=== PATIENT | male | born 1960 | race Caucasian/White ===

== ENCOUNTER 2017-02-11 17:30 | Inpatient (IN) | payer OTHER ==
[~2017-02-11] VITALS: Ht 180.3 cm; Wt 75.0 kg
--- NOTE | 2017-02-11 18:55 | ED ORDER SUMMARY ---
..... Patient: ILIANA SOLOMON OrderSheet [facility] VisitID: [id number] [place] [address] 56y, M Registration Date/Time: 02/11/2017 ORDER SHEET Weight: 72.5 kg (stated) Allergies: No Known Drug Allergy GENERAL ORDERS: Blood Culture (No) (N/A) Urgent (17:57 02/11/2017 Berta Pete) (Ack 18:17 LNations ER Tech1) (18:23 MWinterer R.N.) CBC w Diff Urgent (18:00 02/11/2017 Berta Pete) (Ack 18:17 LNations ER Tech1) (18:22 MWinterer R.N.) CMP Urgent (18:00 02/11/2017 Berta Pete) (Ack 18:17 LNations ER Tech1) (18:22 MWinterer R.N.) UA-Culture if indicated Urgent (18:00 02/11/2017 Berta Pete) (Ack 18:17 LNations ER Tech1) Urine Drug Screen Urgent (18:00 02/11/2017 Berta Pete) (Ack 18:17 LNations ER Tech1) PCT (Procalcitonin) Urgent (18:01 02/11/2017 Berta Pete) (Ack 18:18 LNations ER Tech1) (18:22 MWinterer R.N.) Lactate, Serum Urgent (18:01 02/11/2017 Berta Pete) (Ack 18:18 LNations ER Tech1) (18:22 MWinterer R.N.) Culture, Wound Deep (Foot) (From exudate) Urgent (19:33 02/11/2017 Berta Pete) (Ack 19:40 SRedmond) (20:52 MWinterer R.N.) MEDICATION ORDERS: Tdap IM 0.5 mL (NOW, per protocol) (20:57 02/11/2017 Berta Pete) (Ack 21:21 MWinterer R.N.) (21:40 MWinterer R.N.) IV FLUIDS: IV Saline Lock (18:00 02/11/2017 Berta Pete) (Ack 18:03 MWinterer R.N.) (18:27 MWinterer R.N.) Morphine IV 4 mg (HIGH ALERT MEDICATION, NOW) (18:01 02/11/2017 Berta Pete) (Ack 18:03 MWinterer R.N.) (18:28 MWinterer R.N.) Morphine IV 4 mg (HIGH ALERT MEDICATION, NOW) (20:44 02/11/2017 Berta Pete) (20:47 MWinterer R.N.) Vancomycin IV 1 gm/200mL (NOW) (20:44 02/11/2017 Berta Pete) (Ack 20:47 MWinterer R.N.) (20:52 MWinterer R.N.) ORDER SHEET NOTES: [Electronically signed by Lulú Lopes R.N. (22:01 02/11/2017)] [Electronically signed by Tod Dubois Dr. (08:48 02/12/2017)] [Electronically locked/signed by Lulú Lopes R.N. (22:02/11/2017)]
--- NOTE | 2017-02-11 18:55 | ED CLINICAL REPORT ---
Clinical Report - Physicians/Mid Levels [facility] [address] [place] [address] 02/11/2017 17:32 Patient: ILIANA SOLOMON Time Seen: 17:41; initial patient contact. Arrived- By private vehicle. Historian- patient. HISTORY OF PRESENT ILLNESS Chief Complaint: BOIL. This started about 2 days ago and is still present and worsening. It was gradual in onset and has been constant. It is described as painful. It has been located on the right 1st toe. No cause has been identified. No recent insect bite. Similar symptoms previously: None. Recent medical care: Not recently seen/assessed. REVIEW OF SYSTEMS No fever, chills, enlarged lymph nodes, nausea or vomiting. All systems otherwise negative, except as recorded above. 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 Tetanus immunization status is unknown. SOCIAL HISTORY Current every day smoker. No alcohol use or drug use. ADDITIONAL NOTES The nursing notes have been reviewed with agreement regarding the chief complaint, PMH and patient medications and allergies. PHYSICAL EXAM Vital Signs: 02/11/2017 17:37 BP: 162/86. HR: 88. RR: 18. O2 saturation: 100%. Temp: 97.9 F. Pain level now: 10/10. Have been reviewed. Hypertensive. Heart rate normal. Respiratory rate normal. Temperature normal. Oxygen saturation normal. Appearance: Alert. Oriented X3. No acute distress. ENT: Pharynx normal. CVS: Normal heart rate and rhythm. Heart sounds normal. Respiratory: No respiratory distress. Breath sounds normal. Abdomen: Nontender. No organomegaly. Skin: Skin warm and dry. Single medium abscess with fluctuance, pointing, drainage and cellulitis to right foot. Extremities: Mild 1+ edema of the right lower extremity involving the foot and ankle. Right great toe: moderate tenderness and swelling; limited movement secondary to (diminished flexion and extension). Neurovascular intact distally. Neuro: Oriented X 3. No motor deficit. LABS, X-RAYS, AND EKG Laboratory Tests: CBC w Diff: (ROSEANNE: 02/11/2017 18:15) ( MsgRcvd 02/11/2017 19:10) Final results Test Result Flag Units (Reference) WHITE BLOOD COUNT 17.1 H K/uL (4.5-11.5) RED BLOOD COUNT 4.23 L M/uL (4.50-5.90) HEMOGLOBIN 12.2 L gm/dL (13.5-17.5) HEMATOCRIT 37.2 L % (41.0-53.0) MEAN CELL VOLUME 88 fL (80-100) MEAN CORPUSCULAR HGB 29 pg (26-34) MEAN CORPUSCULAR HGB CONC 33 g/dL (31-37) RED CELL DISTRIBUTION WIDTH 13.4 % (11.6-14.8) PLATELET COUNT 371 K/uL (150-400) NEUTROPHIL % 82.4 H % (50-75) LYMPH % 7.6 L % (25-40) MONO % 6.3 % (3-14) EOSINOPHIL % 3.5 % (0-4) BASOPHIL % 0.2 % (0-2) Lactate, Serum: (ROSEANNE: 02/11/2017 18:15) ( [facility] 02/11/2017 19:21) Final results Test Result Flag Units (Reference) LACTIC ACID 1.4 mmol/L (0.4-2.0) [id number]: (ROSEANNE: 02/11/2017 18:15) ( [facility] 02/11/2017 19:47) Final results Test Result Flag Units (Reference) PROCALCITONIN <0.5 ng/mL (0-0.5) PCT Concentration: Interpretation : Risk/option for action PCT <=0.5 ng/mL : Systemic : Low risk forinfection(sepsis): progression to severeis not likely. : systemic infection.Local bacterial : CAUTION-PCT levelsinfection is : below 0.5 ng/mL do notpossible. : exclude an infection,because localizedinfections (withoutsystemic signs) may beassociated with suchlow levels. If PCT ismeasured very earlyafter a bacterialchallenge (usually <6hours), these valuesmay still be low. Inthis case PCT shouldbe re-assessed 6-24hours later. PCT >0.5 and : Systemic infection: Moderate risk for<= 2 ng/mL : (sepsis) is : progression to severepossible, but : systemic infection.other conditions : The patient should beare known to : closely monitoredelevate PCT. : both clinically andby re-assessing PCTwithin 6-24 hours. PCT > 2 ng/mL : Systemic infection: High risk for(sepsis) is likely: progression to severeunless other : systemic infection.causes are known. : PCT >= 10 ng/mL : Important systemic: High likelihood ofinflammatory : severe sepsis orresponse, almost : septic shock.exclusively due to:severe bacterial :sepsis or septic :shock. : CMP: (ROSEANNE: 02/11/2017 18:15) ( MsgRcvd 02/11/2017 19:26) Final results Test Result Flag Units (Reference) GLUCOSE 106 mg/dL (70-110) BUN 15 mg/dL (7-18) CREATININE 0.9 mg/dL (0.6-1.3) Estimated GFR >60 mL/min Estimated GFR- >60 mL/min Note: Persistent reduction over 3 months in eGFR<60 mL/min/1.73 m2 defines CKD. Patients with eGFR values>=60 mL/min/1.73 m2 may also have CKD if evidence ofpersistent proteinuria. Additional information may be foundat www.kidney.org. SODIUM 138 mmol/L (136-145) POTASSIUM 3.8 mmol/L (3.5-5.1) CHLORIDE 100 mmol/L (98-107) CARBON DIOXIDE 30 mmol/L (21-32) CALCIUM 8.8 mg/dL (8.5-10.1) TOTAL PROTEIN 7.6 g/dL (6.4-8.2) ALBUMIN 3.1 L g/dL (3.3-5.0) BILIRUBIN, TOTAL 0.3 mg/dL (0.0-1.0) ALKALINE PHOSPHATASE 99 U/L (46-116) AST (SGOT) 26 U/L (15-37) ALT (SGPT) 32 U/L (12-78) . PROGRESS AND PROCEDURES Incision & Drainage of Abscess: Per protocol, time-out completed immediately before the procedure. The abscess is located in the right great toe(s). The risks of the procedure, benefits and alternatives were explained. Consent was obtained. IV established. Parenteral Morphine administered. Skin cleansed with Shur-Clens. A moderate amount of pus was drained. Sample obtained for cultures. Estimated blood loss: 2 mL. ( 18 ga needle used to open wound.). Discussed case with on-call health care provider, (call returned 20:26 Dr. Castellanos. Will come see pt in ED and admit.). Reviewed test results and need for additional work-up. Health care provider will see patient in ED. Disposition: Observation in Acute Care. CLINICAL IMPRESSION Single deep abscess to the right lower extremity with incision and drainage. Moderate leukocytosis with bandemia. INSTRUCTIONS Follow-up: Screening today revealed the patient's blood pressure to be in the pre-hypertensive range. The patient was admitted and blood pressure will be managed during the admission. (Electronically signed by Tod Dubois Dr. 02/12/2017 8:48)
--- NOTE | 2017-02-11 18:55 | ED NURSING NOTES ---
Clinical Report - Nurses [facility] [place] [address] 02/11/2017 17:32 Patient: ILIANA SOLOMON TRIAGE Acuity: LEVEL 4. Chief Complaint: RIGHT LOWER EXTREMITY PAIN, SWELLING and REDNESS. Alert. No acute distress. SEPSIS SCREEN: Sepsis Screen. Negative (no infection suspected/documented). --17:41 Lulú Lopes R.N. 17:37 02/11/17. BP: 162/86. HR: 88. RR: 18. O2 saturation: 100% on room air. Temp: 97.9 F. Pain level now: 08/11. --17:41 Lulú Lopes R.N. Weight: 72.5 kg stated. Height/Length: 71 inches Per Patient. BMI: 22.3. --17:39 Lulú Lopes R.N. Medications None. --17:38 Lulú Lopes R.N. Medication/allergy information source: the patient. --17:41 Lulú Lopes R.N. Allergies No Known Drug Allergy. --17:38 Lulú Lopes R.N. History Arrived by private vehicle. Historian: patient. Accompanied by mother. Primary physician (none). An injury may have occurred. This occurred (4 days ago). He has had mild trouble walking. The patient has been limping when trying to walk. SOCIAL HX: Current every day heavy tobacco smoker (cigarette)- 1-2 packs per day. No alcohol use or drug use. FALL RISK ASSESSMENT: Fall risk assessment completed. No fall risk identified. NUTRITIONAL RISK ASSESSMENT: The nutritional risk assessment revealed no deficiencies. FUNCTIONAL ASSESSMENT: Functional assessment: no impairments noted. LEARNING NEEDS ASSESSMENT: The learning needs assessment revealed no barriers. SKIN INTEGRITY ASSESSMENT: Skin integrity risk assessment completed. No skin integrity risk identified. --17:41 Lulú Lopes R.N. PROBLEMS: MRSA Infection. --17:39 Lulú Lopes R.N. Assessment GENERAL / NEURO / PSYCH: Alert. Oriented X 4. Appears in no acute distress. [place] Coma Scale: 15- eyes open spontaneously (4); best verbal response- oriented x 4 (5); best motor response- obeys commands (6). Patient appears calm and cooperative. RESPIRATORY: Respirations not labored. CVS: Capillary refill less than 2 seconds. GI / : Abdomen nontender. SKIN: Mucous membranes are pink. Skin is warm and dry. --17:41 Lulú Lopes R.N. Interventions ID band on patient. To treatment room. --17:41 Lulú Lopes R.N. PHYSICAL ASSESSMENT 17:41 02/11/17. Ambulatory to room. GENERAL / NEURO / PSYCH: Oriented X 4. Alert. Appears in no acute distress. EXTREMITIES: Extremity pulses are within normal limits. Neuro-vascular status intact to the extremity. No lower extremity edema. SKIN: Skin intact. Skin is warm and dry. --17:41 Lulú Lopes R.N. NURSING PROGRESS NOTES 17:02/11/17. Patient gowned. Two patient identifiers checked. Call light placed in reach. Side rails up x 1. Bed placed in lowest position. Brakes of bed on. Patient ready for evaluation- chart flagged and ED physician and FLOORING HELPER notified. --17:41 Lulú Lopes R.N. 18:17 02/11/2017 Site #1 started via IV in the right antecubital space with an 18g angiocath, with aseptic technique and good blood return; one attempt. Blood drawn: rainbow set. Labeled in the presence of the patient and sent to the lab. Saline lock flushed with 10 mL saline. --18:27 Lulú Lopes R.N. 18:28 02/11/2017 Morphine IVP 4 mg given over 1 minute(s) via site #1. Allergies verified, confirmed 5 rights and sedative warning given to the patient. IV patency established. IV site checked: no pain, redness, or swelling. IV flushed thoroughly pre- and post-medication administration. IVP given by RN. --18:28 Lulú Lopes R.N. 18:37 02/11/17. ( Pt states he cannot void at this time..). --18:37 Lulú Lopes R.N. 19:31 02/11/17. BP: 148/91. HR: 89. RR: 18. O2 saturation: 100% on room air. Temp: 97.9 F (oral). --19:33 Lulú Lopes R.N. 19:33 02/11/17. The patient is sleeping. At the patient's bedside (mother). --19:33 Lulú Lopes R.N. 20:47 02/11/2017 Morphine IVP 4 mg given over 1 minute(s) via site #1. Allergies verified, confirmed 5 rights and sedative warning given to the patient. IV patency established. IV site checked: no pain, redness, or swelling. IV flushed thoroughly pre- and post-medication administration. IVP given by RN. --20:47 Lulú Lopes R.N. 20:52 02/11/2017 Started 1 gm of Vancomycin IVPB in bag #1 200 mL; at 200 mL/hr over 1 hour(s) via site #1 via IV pump. Allergies verified and confirmed 5 rights. IV patency established. IV site checked: no pain, redness, or swelling. IV flushed thoroughly pre- and post-medication administration. --20:52 Lulú Lopes R.N. 20:52 02/11/17. BP: 152/96. HR: 83. RR: 12. O2 saturation: 99% on room air. Pain level now: 6/10. --20:53 Lulú Lopes R.N. 21:40 02/11/2017 TDAP IM 0.5 mL given. (Lot#: [id number], expiration date: 08/09/2018, Interactive Media Marketing Strategist: sanofi pasteur). Given in the left deltoid. Allergies verified and confirmed 5 rights. Vaccine information statement provided to the patient. --21:40 Lulú Lopes R.N. 21:51 02/11/2017 Vancomycin IVPB Discontinued: bag #1 infused. Total amount infused: 200 mL. IV patency established. IV site checked: no pain, redness, or swelling. IV flushed thoroughly. --21:51 Lulú Lopes R.N. DISPOSITION / DISCHARGE Condition at departure: improved and stable. Admitted (201). Transported via stretcher by [facility]. Report was given to a nurse. Report included patient's care, treatment, medications, reviewed medication reconcilliation, and condition (including any recent changes or anticipated changes). All questions were answered. Report was acknowledged and care was transferred. (ANGELES Melendez). Patient's personal items include: shirt, pants, socks, shoes, hat, glasses and cell phone; items were placed in belongings bag, given to the patient and transported with the patient. He did not have dentures or a hearing aid or wallet. --21:51 Lulú Lopes R.N. 21:48 02/11/17. BP: 138/85. HR: 77. RR: 12. O2 saturation: 98% on room air. Temp: 98.9 F (oral). Pain level now: 03/11. --21:51 Lulú Lopes R.N. 22:00 02/11/2017 Site #[address] upon admission; patent, no pain and no signs of infection or infiltration. --22:00 Lulú Lopes R.N. Departure time: 22:00 Feb 11 2017. --22:00 Lulú Lopes R.N. Locked/Released at 02/11/2017 22:01 by Lulú Lopes R.N.
--- NOTE | 2017-02-11 18:55 | ED ORDER SUMMARY ---
..... Patient: ILIANA SOLOMON OrderSheet [facility] VisitID: [id number] [place] [address] 56y, M Registration Date/Time: 02/11/2017 ORDER SHEET Weight: 72.5 kg (stated) Allergies: No Known Drug Allergy GENERAL ORDERS: Blood Culture (No) (N/A) Urgent (17:57 02/11/2017 Berta Pete) (Ack 18:17 LNations ER Tech1) (18:23 MWinterer R.N.) CBC w Diff Urgent (18:00 02/11/2017 Berta Pete) (Ack 18:17 LNations ER Tech1) (18:22 MWinterer R.N.) CMP Urgent (18:00 02/11/2017 Berta Pete) (Ack 18:17 LNations ER Tech1) (18:22 MWinterer R.N.) UA-Culture if indicated Urgent (18:00 02/11/2017 Berta Pete) (Ack 18:17 LNations ER Tech1) Urine Drug Screen Urgent (18:00 02/11/2017 Berta Pete) (Ack 18:17 LNations ER Tech1) PCT (Procalcitonin) Urgent (18:01 02/11/2017 Berta Pete) (Ack 18:18 LNations ER Tech1) (18:22 MWinterer R.N.) Lactate, Serum Urgent (18:01 02/11/2017 Berta Pete) (Ack 18:18 LNations ER Tech1) (18:22 MWinterer R.N.) Culture, Wound Deep (Foot) (From exudate) Urgent (19:33 02/11/2017 Berta Pete) (Ack 19:40 SRedmond) (20:52 MWinterer R.N.) MEDICATION ORDERS: Tdap IM 0.5 mL (NOW, per protocol) (20:57 02/11/2017 Berta Pete) (Ack 21:21 MWinterer R.N.) (21:40 MWinterer R.N.) IV FLUIDS: IV Saline Lock (18:00 02/11/2017 Berta Pete) (Ack 18:03 MWinterer R.N.) (18:27 MWinterer R.N.) Morphine IV 4 mg (HIGH ALERT MEDICATION, NOW) (18:01 02/11/2017 Berta Pete) (Ack 18:03 MWinterer R.N.) (18:28 MWinterer R.N.) Morphine IV 4 mg (HIGH ALERT MEDICATION, NOW) (20:44 02/11/2017 Berta Pete) (20:47 MWinterer R.N.) Vancomycin IV 1 gm/200mL (NOW) (20:44 02/11/2017 Berta Pete) (Ack 20:47 MWinterer R.N.) (20:52 MWinterer R.N.) ORDER SHEET NOTES: [Electronically signed by Lulú Lopes R.N. (22:01 02/11/2017)] [Electronically signed by Tod Dubois Dr. (08:48 02/12/2017)] [Electronically locked/signed by Lulú Lopes R.N. (22:02/11/2017)]
--- NOTE | 2017-02-11 18:55 | ED NURSING NOTES ---
Clinical Report - Nurses [facility] [place] [address] 02/11/2017 17:32 Patient: ILIANA SOLOMON TRIAGE Acuity: LEVEL 4. Chief Complaint: RIGHT LOWER EXTREMITY PAIN, SWELLING and REDNESS. Alert. No acute distress. SEPSIS SCREEN: Sepsis Screen. Negative (no infection suspected/documented). --17:41 Lulú Lopes R.N. 17:37 02/11/17. BP: 162/86. HR: 88. RR: 18. O2 saturation: 100% on room air. Temp: 97.9 F. Pain level now: 08/11. --17:41 Lulú Lopes R.N. Weight: 72.5 kg stated. Height/Length: 71 inches Per Patient. BMI: 22.3. --17:39 Lulú Lopes R.N. Medications None. --17:38 Lulú Lopes R.N. Medication/allergy information source: the patient. --17:41 Lulú Lopes R.N. Allergies No Known Drug Allergy. --17:38 Lulú Lopes R.N. History Arrived by private vehicle. Historian: patient. Accompanied by mother. Primary physician (none). An injury may have occurred. This occurred (4 days ago). He has had mild trouble walking. The patient has been limping when trying to walk. SOCIAL HX: Current every day heavy tobacco smoker (cigarette)- 1-2 packs per day. No alcohol use or drug use. FALL RISK ASSESSMENT: Fall risk assessment completed. No fall risk identified. NUTRITIONAL RISK ASSESSMENT: The nutritional risk assessment revealed no deficiencies. FUNCTIONAL ASSESSMENT: Functional assessment: no impairments noted. LEARNING NEEDS ASSESSMENT: The learning needs assessment revealed no barriers. SKIN INTEGRITY ASSESSMENT: Skin integrity risk assessment completed. No skin integrity risk identified. --17:41 Lulú Lopes R.N. PROBLEMS: MRSA Infection. --17:39 Lulú Lopes R.N. Assessment GENERAL / NEURO / PSYCH: Alert. Oriented X 4. Appears in no acute distress. [place] Coma Scale: 15- eyes open spontaneously (4); best verbal response- oriented x 4 (5); best motor response- obeys commands (6). Patient appears calm and cooperative. RESPIRATORY: Respirations not labored. CVS: Capillary refill less than 2 seconds. GI / : Abdomen nontender. SKIN: Mucous membranes are pink. Skin is warm and dry. --17:41 Lulú Lopes R.N. Interventions ID band on patient. To treatment room. --17:41 Lulú Lopes R.N. PHYSICAL ASSESSMENT 17:41 02/11/17. Ambulatory to room. GENERAL / NEURO / PSYCH: Oriented X 4. Alert. Appears in no acute distress. EXTREMITIES: Extremity pulses are within normal limits. Neuro-vascular status intact to the extremity. No lower extremity edema. SKIN: Skin intact. Skin is warm and dry. --17:41 Lulú Lopes R.N. NURSING PROGRESS NOTES 17:02/11/17. Patient gowned. Two patient identifiers checked. Call light placed in reach. Side rails up x 1. Bed placed in lowest position. Brakes of bed on. Patient ready for evaluation- chart flagged and ED physician and INTERVENTIONAL PHYSICIAN notified. --17:41 Lulú Lopes R.N. 18:17 02/11/2017 Site #1 started via IV in the right antecubital space with an 18g angiocath, with aseptic technique and good blood return; one attempt. Blood drawn: rainbow set. Labeled in the presence of the patient and sent to the lab. Saline lock flushed with 10 mL saline. --18:27 Lulú Lopes R.N. 18:28 02/11/2017 Morphine IVP 4 mg given over 1 minute(s) via site #1. Allergies verified, confirmed 5 rights and sedative warning given to the patient. IV patency established. IV site checked: no pain, redness, or swelling. IV flushed thoroughly pre- and post-medication administration. IVP given by RN. --18:28 Lulú Lopes R.N. 18:37 02/11/17. ( Pt states he cannot void at this time..). --18:37 Lulú Lopes R.N. 19:31 02/11/17. BP: 148/91. HR: 89. RR: 18. O2 saturation: 100% on room air. Temp: 97.9 F (oral). --19:33 Lulú Lopes R.N. 19:33 02/11/17. The patient is sleeping. At the patient's bedside (mother). --19:33 Lulú Lopes R.N. 20:47 02/11/2017 Morphine IVP 4 mg given over 1 minute(s) via site #1. Allergies verified, confirmed 5 rights and sedative warning given to the patient. IV patency established. IV site checked: no pain, redness, or swelling. IV flushed thoroughly pre- and post-medication administration. IVP given by RN. --20:47 Lulú Lopes R.N. 20:52 02/11/2017 Started 1 gm of Vancomycin IVPB in bag #1 200 mL; at 200 mL/hr over 1 hour(s) via site #1 via IV pump. Allergies verified and confirmed 5 rights. IV patency established. IV site checked: no pain, redness, or swelling. IV flushed thoroughly pre- and post-medication administration. --20:52 Lulú Lopes R.N. 20:52 02/11/17. BP: 152/96. HR: 83. RR: 12. O2 saturation: 99% on room air. Pain level now: 6/10. --20:53 Lulú Lopes R.N. 21:40 02/11/2017 TDAP IM 0.5 mL given. (Lot#: [id number], expiration date: 08/09/2018, Sales Promotion Director: sanofi pasteur). Given in the left deltoid. Allergies verified and confirmed 5 rights. Vaccine information statement provided to the patient. --21:40 Lulú Lopes R.N. 21:51 02/11/2017 Vancomycin IVPB Discontinued: bag #1 infused. Total amount infused: 200 mL. IV patency established. IV site checked: no pain, redness, or swelling. IV flushed thoroughly. --21:51 Lulú Lopes R.N. DISPOSITION / DISCHARGE Condition at departure: improved and stable. Admitted (201). Transported via stretcher by [employer]. Report was given to a nurse. Report included patient's care, treatment, medications, reviewed medication reconcilliation, and condition (including any recent changes or anticipated changes). All questions were answered. Report was acknowledged and care was transferred. (ANGELES Melendez). Patient's personal items include: shirt, pants, socks, shoes, hat, glasses and cell phone; items were placed in belongings bag, given to the patient and transported with the patient. He did not have dentures or a hearing aid or wallet. --21:51 Lulú Lopes R.N. 21:48 02/11/17. BP: 138/85. HR: 77. RR: 12. O2 saturation: 98% on room air. Temp: 98.9 F (oral). Pain level now: 03/11. --21:51 Lulú Lopes R.N. 22:00 02/11/2017 Site #[address] upon admission; patent, no pain and no signs of infection or infiltration. --22:00 Lulú Lopes R.N. Departure time: 22:00 Feb 11 2017. --22:00 Lulú Lopes R.N. Locked/Released at 02/11/2017 22:01 by Lulú Lopes R.N.
--- NOTE | 2017-02-11 21:42 | Progress Note ---
Subjective General Abscess right great toe. Needs I/D and is having a lot of pain. Admitted for IV antibiotics and surgery in the am.
--- NOTE | 2017-02-11 21:42 | Progress Note ---
Subjective General Abscess right great toe. Needs I/D and is having a lot of pain. Admitted for IV antibiotics and surgery in the am.
--- NOTE | 2017-02-11 23:51 | DIAGNOSTIC IMAGING REPORT ---
PROCEDURE: XR TOE - RIGHT INDICATION: infected right great toe TECHNIQUE: Three views. COMPARISON: None. FINDINGS: There is soft tissue swelling around the right first proximal phalanx with a faint radiodensity, possible foreign body versus tophus. No evidence of underlying osteomyelitis. Normal joint spaces. Old fifth metatarsal fracture. IMPRESSION: 1. Soft tissue swelling around the right first proximal phalanx with foreign body versus tophus.
[2017-02-12] VITALS (12 sets, daily range): BP systolic 103–135; BP diastolic 57–95
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
--- NOTE | 2017-02-12 08:06 | Postoperative Progress Note ---
Postop Progress Note Preoperate Diagnosis: Abscess right great toe Postoperative Diagnosis: Same Surgeon: Jaime Castellanos MD Anesthesia: General ETT Findings: Abscess right great toe Procedure: I/D right great toe Complications? No Condition: Stable EBL: 5cc Drain(s): /" gauze packing Blood Administered: 0 Specimen(s) removed? No Grafts or Implants? No . (See nursing notes for details of grafts/implants)
--- NOTE | 2017-02-12 08:41 | OPERATIVE REPORT ---
DATE OF SURGERY: 02/12/2017 SURGEON: LUIS AMEZCUA MD PREOPERATIVE DIAGNOSIS: 1. Abscess of the right great toe. POSTOPERATIVE DIAGNOSIS: 1. Abscess of the right great toe. PROCEDURE PERFORMED: The operation proposed was an incision and drainage of the right great toe and the operation performed the same. ESTIMATED BLOOD LOSS: About 5 mL. COMPLICATIONS: None. PATHOLOGY SPECIMEN: None. SURGICAL TECHNIQUE: The patient was taken to the operating room. He was given a general anesthetic and then the leg was prepped and draped in the usual sterile fashion. I made a longitudinal incision directly dorsally over the great toe and he had a large quantity of very thick pus that was expressed and then the wound was probed. It did extend right down to his MTP joint and it was irrigated out very thoroughly with copious quantities of sterile saline solution and then packed with some 1/4 inch gauze packing. It was covered with an ABD pad and wrapped with a Kerlix and Ash bandage loosely applied. Once the bandage was applied, he was awakened and he was taken to the recovery room in stable condition.
--- NOTE | 2017-02-12 08:49 | ED MAR SUMMARY ---
..... Medication Administration Record [facility] [address] [place] [address] Patient: ILIANA SOLOMON Visit ID: [id number] 56y, M Weight: 72.5 kg Height/Length: 71 in BMI: 22.3 ALLERGIES: No Known Drug Allergy Given 18:28 02/11/2017 Lulú Lopes R.N. Medication Administered: MORPHINE [IVP], Dose: 4 mg IVP over 1 minute(s), Site: #1 right AC. Medication Ordered: Morphine IV 4 mg (HIGH ALERT MEDICATION, NOW). Given 20:47 02/11/2017 Lulú Lopes R.N. Medication Administered: MORPHINE [IVP], Dose: 4 mg IVP over 1 minute(s), Site: #1 right AC. Medication Ordered: Morphine IV 4 mg (HIGH ALERT MEDICATION, NOW). Start 20:52 02/11/2017 Lulú Lopes R.N., Stop 21:51 02/11/2017 Lulú Lopes R.N. Medication Administered: VANCOMYCIN [IVPB], Dose: 1 gm IVPB over 1 hour(s), Rate: 200 mL/hr, Dispensed: 200 mL bag, Site: #1 right AC. Medication Ordered: Vancomycin IV 1 gm/200mL (NOW). Given 21:40 02/11/2017 Lulú Lopes R.N. Medication Administered: TDAP [IM], Dose: 0.5 mL IM. Medication Ordered: Tdap IM 0.5 mL (NOW, per protocol).
--- NOTE | 2017-02-12 08:49 | ED MAR SUMMARY ---
..... Medication Administration Record [facility] [address] [place] [place] [address] Patient: ILIANA SOLOMON Visit ID: [id number] 56y, M Weight: 72.5 kg Height/Length: 71 in BMI: 22.3 ALLERGIES: No Known Drug Allergy Given 18:28 02/11/2017 Lulú Lopes R.N. Medication Administered: MORPHINE [IVP], Dose: 4 mg IVP over 1 minute(s), Site: #1 right AC. Medication Ordered: Morphine IV 4 mg (HIGH ALERT MEDICATION, NOW). Given 20:47 02/11/2017 Lulú Lopes R.N. Medication Administered: MORPHINE [IVP], Dose: 4 mg IVP over 1 minute(s), Site: #1 right AC. Medication Ordered: Morphine IV 4 mg (HIGH ALERT MEDICATION, NOW). Start 20:52 02/11/2017 Lulú Lopes R.N., Stop 21:51 02/11/2017 Lulú Lopes R.N. Medication Administered: VANCOMYCIN [IVPB], Dose: 1 gm IVPB over 1 hour(s), Rate: 200 mL/hr, Dispensed: 200 mL bag, Site: #1 right AC. Medication Ordered: Vancomycin IV 1 gm/200mL (NOW). Given 21:40 02/11/2017 Lulú Lopes R.N. Medication Administered: TDAP [IM], Dose: 0.5 mL IM. Medication Ordered: Tdap IM 0.5 mL (NOW, per protocol).
--- NOTE | 2017-02-12 08:49 | ED DISCHARGE INSTRUCTIONS ---
Patient: ILIANA SOLOMON General Instructions [facility] VisitID: [id number] [address] [place] [address] 56y, M Registration Date/Time: 02/11/2017 Single deep abscess to the right lower extremity with incision and drainage. Moderate leukocytosis with bandemia. INSTRUCTIONS Follow-up: Screening today revealed the patient's blood pressure to be in the pre-hypertensive range. The patient was admitted and blood pressure will be managed during the admission. (Electronically signed by Tod Dubois Dr. 02/12/2017 8:48)
--- NOTE | 2017-02-12 08:49 | ED MED RECONCILIATION SUMMARY ---
Patient: ILIANA SOLOMON Medication Reconciliation Report [facility] VisitID: [id number] [address] [place] [address] 56y, M Registration Date/Time: 02/11/2017 Weight: 72.5 kg Height/Length: 71 in. BMI: 22.3 ALLERGIES: No Known Drug Allergy The patient's Home Medications are listed below: NONE. The source(s) of the original Home Medication information: patient The following Medications were given to the patient in the Emergency Department: Morphine [IVP] IVP 4 mg, administered: 02/11/2017 6:28:00 PM Morphine [IVP] IVP 4 mg, administered: 02/11/2017 8:47:00 PM Vancomycin [IVPB] IVPB bolus 0, then 1 gm 200 mL/hr, administered: 02/11/2017 8:52:00 PM TDAP [IM] IM 0.5 mL, administered: 02/11/2017 9:40:00 PM The following Medications were prescribed to the patient: None.
--- NOTE | 2017-02-12 08:49 | ED MED RECONCILIATION SUMMARY ---
Patient: ILIANA SOLOMON Medication Reconciliation Report [facility] VisitID: [id number] [address] [place] [address] 56y, M Registration Date/Time: 02/11/2017 Weight: 72.5 kg Height/Length: 71 in. BMI: 22.3 ALLERGIES: No Known Drug Allergy The patient's Home Medications are listed below: NONE. The source(s) of the original Home Medication information: patient The following Medications were given to the patient in the Emergency Department: Morphine [IVP] IVP 4 mg, administered: 02/11/2017 6:28:00 PM Morphine [IVP] IVP 4 mg, administered: 02/11/2017 8:47:00 PM Vancomycin [IVPB] IVPB bolus 0, then 1 gm 200 mL/hr, administered: 02/11/2017 8:52:00 PM TDAP [IM] IM 0.5 mL, administered: 02/11/2017 9:40:00 PM The following Medications were prescribed to the patient: None.
--- NOTE | 2017-02-12 08:49 | ED DISCHARGE INSTRUCTIONS ---
Patient: ILIANA SOLOMON General Instructions [facility] VisitID: [id number] [address] [place] [address] 56y, M Registration Date/Time: 02/11/2017 Single deep abscess to the right lower extremity with incision and drainage. Moderate leukocytosis with bandemia. INSTRUCTIONS Follow-up: Screening today revealed the patient's blood pressure to be in the pre-hypertensive range. The patient was admitted and blood pressure will be managed during the admission. (Electronically signed by Tod Dubois Dr. 02/12/2017 8:48)
[2017-02-13 02:06] VITALS: BP 100/64
[2017-02-13 06:52] VITALS: BP 123/67
--- NOTE | 2017-02-13 08:51 | Progress Note ---
Subjective General VSS Afeb WBC 9 Hgb 11.5 ESR 39 Feels much better today and would like to go home. Toe is pink with decreased edema and looks better. Small amount of drainage only. I'll check and see if the lab has any C/S results and if there is an appropriate PO med for him he can go home, if not he'll need to spend another day here getting IV Vancocin.
--- NOTE | 2017-02-13 09:00 | Progress Note ---
Subjective General The cultures are growing what is almost surely staph and probably MRSA. No sensitivity yet, likely tomorrow. Plan to continue with IV vancocin here in the hospital for another day.
[2017-02-13 10:53] VITALS: BP 110/59
[2017-02-13 14:18] VITALS: BP 119/70
[2017-02-13 17:48] VITALS: BP 116/74
[2017-02-13 22:32] VITALS: BP 120/76
[2017-02-14 02:08] VITALS: BP 117/79
[2017-02-14 06:33] VITALS: BP 126/74
[2017-02-14 11:03] VITALS: BP 137/75
[2017-02-14 13:39] VITALS: BP 127/80
--- NOTE | 2017-02-14 15:12 | Progress Note ---
Subjective General Pain controlled with Percocet. Receiving Vancomycin. Musculoskeletal Foot Pain. Physical Exam Vital Signs / I&Os Vital Signs Date Time Temp Pulse Resp B/P Pulse O2 O2 Flow FiO2 Ox Delivery Rate 02/14 1339 98.2 79 19 127/80 97 Room Air 02/14 1103 98.6 82 20 137/75 96 Room Air 02/14 0633 97.5 66 17 126/74 95 Room Air 02/14 0208 98.8 66 18 117/79 95 Room Air 02/14 0105 Room Air 02/13 2232 99.0 65 18 120/76 96 Room Air 02/13 1758 Room Air 02/13 1748 99.0 65 18 116/74 97 I&O 02/13 0800 02/13 1600 02/14 0000 Intake Total 940 890 700 Output Total 625 Balance 315 890 700 General Appearance Alert, Oriented X3, Cooperative, No acute distress Extremities The right great toe has packing which I removed with sterile gloves and technique.there was one drop of pus expressed. The incision is midline dorsal. Involvement of extensor tendon and/or bone/joint are possible necessitate longer Assessment and Plan Problem List 1. Abscess of great toe, right Plan The possible involvement of tendon, bone, or joint may necessitate longer course. The sensitivities of microbiology shows MRSA. This would require IV antibiotics and the patient had crystal meth in urine and opiates. His brother from complications of illicit drug use. Therefore he cannot go home with a PICC line. E&M Codes Roundin
[2017-02-14 17:45] VITALS: BP 130/81
--- NOTE | 2017-02-14 17:54 | DIAGNOSTIC IMAGING REPORT ---
PROCEDURE: MR LOWER EXT JOINT W/WO-RIGHT INDICATION: Infected right great toe. TECHNIQUE: Sagittal, coronal and axial T1 and STIR sequences. 15 ml of ProHance administered IV and sagittal, coronal and axial T1 fat sat sequences were obtained. COMPARISON: Right great seven x-ray 02/11/2017. FINDINGS: There is a 1.1 cm wound mid dorsal aspect of the right great toe proximal phalanx with enhancing soft tissue swelling around the first, second and third toes and dorsum of foot consistent with cellulitis. There is normal bone marrow signal intensity without evidence of osteomyelitis. Small periarticular cysts of the distal first and second metatarsals. Mild first MTP joint degenerative changes. IMPRESSION: 1. Open wound and cellulitis of the right great toe but no evidence of osteomyelitis
[2017-02-14 22:49] VITALS: BP 128/81
[2017-02-15 02:13] VITALS: BP 128/85
[2017-02-15 06:38] VITALS: BP 112/75
--- NOTE | 2017-02-15 09:43 | Progress Note ---
Subjective General He is comfortable. He is getting a daily dressing change and IV vancomycin. Constitutional Other (Unchanged from admission). Physical Exam Vital Signs / I&Os Vital Signs Date Time Temp Pulse Resp B/P Pulse O2 O2 Flow FiO2 Ox Delivery Rate 02/15 0638 97.9 72 20 112/75 98 Room Air 02/15 0213 98.4 67 18 128/85 97 Room Air 02/15 0152 98.4 02/14 2249 67 18 128/81 97 Room Air 02/14 2110 Room Air 02/14 1745 98.8 65 16 130/81 97 Room Air 02/14 1339 98.2 79 19 127/80 97 Room Air 02/14 1103 98.6 82 20 137/75 96 Room Air 02/14 1000 Room Air I&O 02/14 0800 02/14 1600 02/15 0000 Intake Total 741 680 300 Output Total 300 350 Balance 441 330 300 General Appearance Alert, Oriented X3, No acute distress Extremities No cyanosis, dressing intact Imaging The MRI of the foot does not show osteomyelitis. Plan Activity: Out of bed Medications/IV Plans: continue vancomycin for ten days then discharge on sulfa orally. See comment on progress note of 02/14/17, concerning patients drug use.
[2017-02-15 11:06] VITALS: BP 125/81
[2017-02-15 14:32] VITALS: BP 115/79
[2017-02-15 18:14] VITALS: BP 130/74
[2017-02-15 22:26] VITALS: BP 131/77
[2017-02-16 02:02] VITALS: BP 135/69
[2017-02-16 06:53] VITALS: BP 145/73
[2017-02-16 11:13] VITALS: BP 132/69
[2017-02-16 14:10] VITALS: BP 140/75
--- NOTE | 2017-02-16 17:19 | Progress Note ---
Subjective General Feels well and afebrile. toes feels pain during dressing changes. Physical Exam Vital Signs / I&Os Vital Signs Date Time Temp Pulse Resp B/P Pulse O2 O2 Flow FiO2 Ox Delivery Rate 02/16 1410 98.4 62 18 140/75 97 Room Air 02/16 1113 98.2 67 18 132/69 98 Room Air 02/16 0957 Room Air 02/16 0653 98.1 60 19 145/73 99 Room Air 02/16 0202 97.5 67 18 135/69 98 Room Air 02/15 2226 98.1 63 18 131/77 98 Room Air 02/15 2011 Room Air 02/15 1814 97.7 66 18 130/74 98 Room Air I&O 02/15 0800 02/15 1600 02/16 0000 Intake Total 200 1060 700 Output Total 300 400 400 Balance -100 660 300 General Appearance Alert, Oriented X3, Cooperative, No acute distress Extremities The toe wound has a one cm piece of what appears to be necrotic skin and will need sharp debridement. Plan Additional Comments: continue Vancomycin, debride the small patch of devascularized dorsal toe skin, E&M Codes Roundin
[2017-02-16 18:38] VITALS: BP 144/86
[2017-02-16 22:16] VITALS: BP 138/87
[2017-02-17 02:07] VITALS: BP 123/68
[2017-02-17 07:59] VITALS: BP 137/70
[2017-02-17 11:09] VITALS: BP 128/66
[2017-02-17 13:21] VITALS: BP 126/76
--- NOTE | 2017-02-17 17:00 | Progress Note ---
Subjective Other comfortable. Physical Exam Vital Signs / I&Os Vital Signs Date Time Temp Pulse Resp B/P Pulse O2 O2 Flow FiO2 Ox Delivery Rate 02/17 1321 98.2 667 18 126/76 97 Room Air 00.0 02/17 1109 97.7 71 16 128/66 95 Room Air 02/17 0759 97.5 82 16 137/70 95 Room Air 02/17 0207 97.5 70 18 123/68 95 Room Air 02/16 2216 98.2 74 17 138/87 96 Room Air 02/16 1838 98.1 72 18 144/86 96 Room Air I&O 02/16 0800 02/16 1600 02/17 0000 Intake Total 708 921 7789 Output Total 650 975 Balance -400 400 213 Extremities wound dressed Plan Additional Comments: The equipment needed to do the debridement was not available now on the floor. Will disscuss this with OR tomorrow. E&M Codes Roundin
--- NOTE | 2017-02-17 17:00 | Progress Note ---
Subjective Other comfortable. Physical Exam Vital Signs / I&Os Vital Signs Date Time Temp Pulse Resp B/P Pulse O2 O2 Flow FiO2 Ox Delivery Rate 02/17 1321 98.2 667 18 126/76 97 Room Air 00.0 02/17 1109 97.7 71 16 128/66 95 Room Air 02/17 0759 97.5 82 16 137/70 95 Room Air 02/17 0207 97.5 70 18 123/68 95 Room Air 02/16 2216 98.2 74 17 138/87 96 Room Air 02/16 1838 98.1 72 18 144/86 96 Room Air I&O 02/16 0800 02/16 1600 02/17 0000 Intake Total 312 343 0792 Output Total 650 975 Balance -400 400 213 Extremities wound dressed Plan Additional Comments: The equipment needed to do the debridement was not available now on the floor. Will disscuss this with OR tomorrow. E&M Codes Roundin
[2017-02-17 19:25] VITALS: BP 118/76
[2017-02-17 22:58] VITALS: BP 121/81
[2017-02-18 02:09] VITALS: BP 121/79
[2017-02-18 07:24] VITALS: BP 121/83
[2017-02-18 10:48] VITALS: BP 108/74
--- NOTE | 2017-02-18 12:34 | Progress Note ---
Subjective General Comfortable. receiving IV vancomycin and wound care. Scheduled for debridement, at bedside, of necrotic tissue on great toe. See predebridment photo and post debridement photo. Physical Exam Vital Signs / I&Os Vital Signs Date Time Temp Pulse Resp B/P Pulse O2 O2 Flow FiO2 Ox Delivery Rate 02/18 1048 97.5 73 18 108/74 97 Room Air 0.0 02/18 0853 Room Air 02/18 0724 97.5 61 18 121/83 97 Room Air 0.0 02/18 0209 97.9 63 16 121/79 97 Room Air 00.0 02/17 2258 98.1 78 16 121/81 98 Room Air 00.0 02/17 2046 Room Air 02/17 1925 98.2 69 18 118/76 100 Room Air 02/17 1321 98.2 667 18 126/76 97 Room Air 00.0 I&O 02/17 0800 02/17 1600 02/18 0000 Intake Total 500 600 918 Output Total 300 300 375 Balance 200 300 543 General Appearance Alert, Oriented X3, No acute distress Extremities The right great toe has a dorsal necrotic patch of skin about [id number] on the tibial side of the toe going up to the toe midline. The tendon is not exposed. There is no significant undermining when probed. Assessment Additional Comments: Status post incision and drainage of a MRSA abcess of the right great toe Plan Additional Comments: Proceedure: Bedside debridement of necrotic [id number] necrotic skin in an incision and drainage wound of the dorsal right great toe. Anesthesia: local 1% lidocaine Details: After the lidocaine took effect the necrotic tissue was held with a clamp and circumferentially sharply excised. No specimens were sent. Pre and post debridement photos are available in the chart. The patient tolerated the proceedure well.
--- NOTE | 2017-02-18 12:34 | Progress Note ---
Subjective General Comfortable. receiving IV vancomycin and wound care. Scheduled for debridement, at bedside, of necrotic tissue on great toe. See predebridment photo and post debridement photo. Physical Exam Vital Signs / I&Os Vital Signs Date Time Temp Pulse Resp B/P Pulse O2 O2 Flow FiO2 Ox Delivery Rate 02/18 1048 97.5 73 18 108/74 97 Room Air 0.0 02/18 0853 Room Air 02/18 0724 97.5 61 18 121/83 97 Room Air 0.0 02/18 0209 97.9 63 16 121/79 97 Room Air 00.0 02/17 2258 98.1 78 16 121/81 98 Room Air 00.0 02/17 2046 Room Air 02/17 1925 98.2 69 18 118/76 100 Room Air 02/17 1321 98.2 667 18 126/76 97 Room Air 00.0 I&O 02/17 0800 02/17 1600 02/18 0000 Intake Total 500 600 918 Output Total 300 300 375 Balance 200 300 543 General Appearance Alert, Oriented X3, No acute distress Extremities The right great toe has a dorsal necrotic patch of skin about [id number] on the tibial side of the toe going up to the toe midline. The tendon is not exposed. There is no significant undermining when probed. Assessment Additional Comments: Status post incision and drainage of a MRSA abcess of the right great toe Plan Additional Comments: Proceedure: Bedside debridement of necrotic [id number] necrotic skin in an incision and drainage wound of the dorsal right great toe. Anesthesia: local 1% lidocaine Details: After the lidocaine took effect the necrotic tissue was held with a clamp and circumferentially sharply excised. No specimens were sent. Pre and post debridement photos are available in the chart. The patient tolerated the proceedure well.
[2017-02-18 14:39] VITALS: BP 121/63
[2017-02-18 18:10] VITALS: BP 127/80
[2017-02-18 23:18] VITALS: BP 130/60
[2017-02-19 03:26] VITALS: BP 125/62
--- NOTE | 2017-02-19 07:52 | Progress Note ---
Subjective General No C/O, no pain. Wants to go home. Toe looks much better with mild erythema and minimal drainage in the bandage today. Minimal edema. DC home with PO Bactrim and daily dressing changes.
--- NOTE | 2017-02-19 08:09 | Provider's Discharge Care Plan ---
Problem, Goal, Plan Problem List 1. Abscess of great toe, right 2. Leukocytosis
--- NOTE | 2017-02-19 08:09 | Provider's Discharge Care Plan ---
Problem, Goal, Plan Problem List 1. Abscess of great toe, right 2. Leukocytosis
[2017-02-19] MEDS ORDERED: BACTRIM DS1 TAB PO (08:16)
--- NOTE | 2017-02-19 08:57 | DISCHARGE SUMMARY ---
ADMIT DATE: 02/11/2017 DISCHARGE DATE: 02/19/2017 DISCHARGE DIAGNOSIS: 1. Abscess of the right great toe BRIEF HISTORY: The patient had an abrasion over the dorsal aspect of his right foot. He had been colonized with MRSA from a previous infection and unfortunately developed a MRSA infection at the toe. He came to the emergency room then with an abscess overlying the MTP joint and was admitted to the hospital for care of the same. HOSPITAL COURSE: The patient was admitted to the hospital. He had an I&D procedure done on the toe and was placed on IV vancomycin. His cultures did grow out MRSA, and he was maintained on vancomycin during the course of his hospital stay here. Then he had a minor debridement of black eschar over the dorsal aspect of the toe on the day prior to his discharge, but by the day of discharge it was looking much better. There was almost no drainage from the toe at all. The erythema had largely subsided. The swelling had almost completely gone away. He was having, he said, no pain, and was discharged to home in stable condition on 02/19/2017. DISCHARGE INSTRUCTIONS/MEDICATIONS: The plans for home will be for him to keep the foot clean and dry and covered. Change bandages on a daily basis with dry gauze. To keep the foot elevated and walk only the most minimal amount around the house, as necessary just for him to do his activities of daily living. He will return to the orthopedic clinic in 1 week. He will take Bactrim-DS 1 tablet p.o. b.i.d. and a regular aspirin pill, 1 tab p.o. b.i.d. as well.
== END 2017-02-19 09:30 | disposition home or self-care (01) | DRG 361 ==
LOC: ED SRH 17:30 → TRANS SRH 20:29 → ACUTE2 SRH 22:10
PROVIDERS: Orthopaedic Surgery; ADMIT Family Medicine
PROC: 0H9MXZX Drainage of Right Foot Skin, External Approach, Diagnostic (ICD-10-PCS; 2017-02-11)
PROC: 3E0234Z Introduction of Serum, Toxoid and Vaccine into Muscle, Percutaneous Approach (ICD-10-PCS; 2017-02-11)
PROC: 0J9Q0ZZ Drainage of Right Foot Subcutaneous Tissue and Fascia, Open Approach (ICD-10-PCS; principal; 2017-02-12 07:30)
PROC: 0HBMXZZ Excision of Right Foot Skin, External Approach (ICD-10-PCS; 2017-02-18)
DX: L02.611 Cutaneous abscess of right foot (principal); B95.62 Methicillin resistant Staphylococcus aureus infection as the cause of diseases classified elsewhere; S90.411A Abrasion, right great toe, initial encounter; X58.XXXA Exposure to other specified factors, initial encounter; Y99.8 Other external cause status; B18.2 Chronic viral hepatitis C; Z23 Encounter for immunization; Z86.14 Personal history of Methicillin resistant Staphylococcus aureus infection; Z89.029 Acquired absence of unspecified finger(s)

== ENCOUNTER 2017-05-15 19:32 | Inpatient (IN) | payer OTHER ==
[~2017-05-15] VITALS: Ht 180.3 cm; Wt 75.5 kg
[~2017-05-15 19:32] MED LIST: BACTRIM DS1 TAB PO
--- NOTE | 2017-05-15 21:34 | DIAGNOSTIC IMAGING REPORT ---
PROCEDURE: XR CHEST 2 VIEW INDICATION: FEVER TECHNIQUE: Two views. COMPARISON: None. FINDINGS: The cardiomediastinal contour and central vasculature are within normal limits. Small right pleural effusion. Moderate right lateral upper lobe and apical pleural thickening. Asymmetric soft tissue swelling right supraclavicular region. No pneumothorax. The left lung is clear. Osseous structures demonstrate moderate compression fracture of the mid thoracic vertebral body resulting in focal thoracic kyphosis. IMPRESSION: 1. Right pleural effusion. 2. Right apical pleural and supraclavicular soft tissue swelling. A CT has been performed.
--- NOTE | 2017-05-15 22:41 | DIAGNOSTIC IMAGING REPORT ---
PROCEDURE: CTA THORAX WITH CONTRAST INDICATION: SHORTNESS OF BREATH TECHNIQUE: 88 ml of Isovue 370 was injected intravenously and axial images were obtained of the chest with 3D sagittal and coronal MIP reconstructions. COMPARISON: Chest x-ray Performed the same day FINDINGS: Ill-defined soft tissue and muscular thickening obliterates the fat at the apex of the right axilla. There is a vague, peripherally enhancing area of lower density measuring approximately 2.9 x 3.0 x 2.0 cm along the lateral chest wall, lateral to the first and second right ribs, deep to the distal clavicle The underlying apical and lateral pleural surface is thickened and gently lobulated. There is no evidence of rib destruction. Distal in the right axilla , there are two enlarged lymph nodes measuring about 10 mm in short axis. There is no central pulmonary arterial filling defect. The segmental pulmonary arteries demonstrate mildly irregular opacification. There is a questionable nonocclusive clot involving the lateral segmental artery of the left lower lobe (series 5 image #84). Aortic arch, great vessels, and main pulmonary artery are normal caliber. Normal sized heart with moderate LAD calcification. No pericardial effusion. There is a small right pleural effusion and minimal right lung base atelectasis. Slight emphysematous changes in the upper lobes bilaterally. No dense consolidations or suspicious mass. Minimal left lung base atelectasis. There is a moderate, chronic-appearing anterior wedge compression fracture of T7. No suspicious paraspinal soft tissue. The other osseous structures are intact. Ill-defined 14 mm hypodensity in the superior lateral left hepatic lobe , uncertain etiology. Upper abdomen is otherwise unremarkable. IMPRESSION: 1. Soft tissue thickening with central low density fluid collection involving right apical pleura and apical right axilla. Central low density area may represent an abscess or cystic neoplasm. Constellation of findings is concerning for Pancoast tumor. There is no evidence of bony destruction. 2. There is a small right pleural effusion with right base atelectasis. This may be reactive to an apical pleural inflammation or neoplastic in etiology. 3. Slight heterogeneity in the segmental and subsegmental pulmonary arteries with a questionable nonocclusive clot in the left lateral lower lung segmental artery. No evidence of end organ damage such as left effusion or infarct. 4. Chronic-appearing T7 compression. 5. Discussed with Ara Stockton in the emergency room.
--- NOTE | 2017-05-15 23:07 | ED ORDER SUMMARY ---
..... Patient: ILIANA SOLOMON OrderSheet [facility] VisitID: [id number] [place] [address] 56y, M Registration Date/Time: 05/15/2017 ORDER SHEET Weight: 72.5 kg (stated) Allergies: No Known Drug Allergy GENERAL ORDERS: Chest 2V Urgent (20:03 05/15/2017 HBivens A.R.N.P.) (Ack 20:09 AMcQuoid ER Tech1) (20:15 MCampbell) CBC w Diff Urgent (20:03 05/15/2017 HBivens A.R.N.P.) (Ack 20:09 AMcQuoid ER Tech1) (20:17 AMcQuoid ER Tech1) CMP Urgent (20:03 05/15/2017 HBivens A.R.N.P.) (Ack 20:09 AMcQuoid ER Tech1) (20:17 AMcQuoid ER Tech1) EKG - ER Stat (20:09 05/15/2017 HBivens A.R.N.P.) (Ack 20:09 AMcQuoid ER Tech1) (21:06 RKaruga) Rapid Influenza Screen (Nasal Pharyngeal) (nares) Urgent (20:10 05/15/2017 HBivens A.R.N.P.) (Ack 20:17 AMcQuoid ER Tech1) (20:20 AMcQuoid ER Tech1) D-Dimer Urgent (20:11 05/15/2017 HBivens A.R.N.P.) (20:17 AMcQuoid ER Tech1) CTA Thorax w Cont (No) (normal) Urgent (20:49 05/15/2017 HBivens A.R.N.P.) (Ack 20:55 AMcQuoid ER Tech1) (21:12 MCampbell) Blood Culture (No) (N/A) Urgent (22:54 05/15/2017 HBivens A.R.N.P.) (Ack 23:09 RKaruga) (2:47 HSoule) PT with INR Urgent (22:54 05/15/2017 HBivens A.R.N.P.) (Ack 23:09 RKaruga) (2:47 HSoule) PTT Urgent (22:54 05/15/2017 HBivens A.R.N.P.) (Ack 23:09 [facility]) (2:47 HSoule) Lactate, Serum Urgent (22:54 05/15/2017 HBivens A.R.N.P.) (Ack 23:09 [facility]) (2:47 HSoule) PCT (Procalcitonin) Urgent (22:54 05/15/2017 HBivens A.R.N.P.) (Ack 23:09 [facility]) (2:47 HSoule) Urine Drug Screen Urgent (01:13 05/16/2017 Katlyn FARMER) (2:22 SSambou R.N.) MEDICATION ORDERS: Lovenox Subcut 1 mg/kg (NOW) (00:35 05/16/2017 Katlyn FARMER) (1:07 SSambou R.N.) Tylenol PO 1,000 mg (NOW) (01:08 05/16/2017 SSambou R.N. verbal order read back to HBivens A.R.N.P.) (1:09 SSambou R.N.) IV FLUIDS: IV Saline Lock (20:03 05/15/2017 HBivens A.R.N.P.) (20:16 SSambou R.N.) Ceftriaxone IV 1 gm/50mL (NOW) (22:53 05/15/2017 HBivens A.R.N.P.) (Ack 22:59 SSambou R.N.) (23:14 HSoule) Ativan IV 1 mg (HIGH ALERT MEDICATION, NOW) (23:10 05/15/2017 HBivens A.R.N.P.) (23:17 SSambou R.N.) Zosyn IV 3.375 gm/50mL (NOW) (00:35 05/16/2017 Katlyn FARMER) (Ack 1:11 HSoule) (2:22 SSambou R.N.) Levaquin IV 750 mg/150 mL (NOW) (00:35 05/16/2017 Katlyn FARMER) (0:57 SSambou R.N.) ORDER SHEET NOTES: [Electronically signed by Sheriff Eldon España (02:57 05/16/2017)] [Electronically signed by Vinod Bunch MD (09:54 05/16/2017)] [Electronically signed by Ara Stockton (11:59 05/16/2017)] [Electronically locked/signed by Sheriff Eldon España (02:57 05/16/2017)]
--- NOTE | 2017-05-15 23:07 | ED CLINICAL REPORT ---
Clinical Report - Physicians/Mid Levels [facility] [address] [place] [address] 05/15/2017 19:32 Patient: ILIANA SOLOMON Time Seen: 1948; initial patient contact, initial documentation, patient care assumed. Arrived- By private vehicle. Historian- patient and mother. CPT: ER phys charges level 5 (#[id number]). HISTORY OF PRESENT ILLNESS Chief Complaint: FEVER. This started about 1 weeks ago and is still present. The illness is described as moderate. The patient has had a cough, fever of 101 F and muscle aches. He has had difficulty breathing at rest (feels sob). There has been no dyspnea on exertion, orthopnea, paroxysmal nocturnal dyspnea or wheezing. No chest discomfort or pain, sore throat or nasal congestion or discharge. No sinus pressure or sinus drainage. Additional history - No known contact with a sick individual. No recent travel. Similar symptoms previously: None. Recent medical care: The patient was seen recently in a clinic. ( went to clinic correctional officer captain, sent here for eval). REVIEW OF SYSTEMS No headache, eye discomfort, nausea, vomiting or diarrhea. No abdominal pain, pedal edema, calf pain, difficulty with urination or skin rash. No enlarged lymph nodes, sore throat, diabetic symptoms or easy bruising. The patient has had joint pain. knot in shoulder, pt states it has been there for 4 days, mom told nurse it has been there long time and she thinks pt has ca. All systems otherwise negative, except as recorded above. PAST HISTORY See nurses notes. PROBLEMS: Leukocytosis. Abscess. MRSA Infection. --19:40 Sheriff España R.N. SOCIAL HISTORY Heavy tobacco smoker. Not exposed to second-hand smoke at home. No alcohol use or drug use. No recent travel. Is a local resident. FAMILY HISTORY uncle had ca. ADDITIONAL NOTES The nursing notes have been reviewed with agreement regarding the chief complaint, HPI, ROS, PMH and patient medications and allergies. PHYSICAL EXAM Vital Signs: 05/15/2017 19:37 BP: 153/80. HR: 91. RR: 20. O2 saturation: 97%. Temp: 100.1 F. Pain level now: 06/11. Have been reviewed as normal and appear to be correct. Blood pressure normal. Heart rate normal. Respiratory rate normal. Febrile. Oxygen saturation normal. Appearance: Alert. No acute distress. Eyes: Pupils equal, round and reactive to light. Eyes normal inspection. ENT: Ears normal. Nose normal. Pharynx normal. Uvula midline. Neck: Abnormal inspection. Marked right supraclavicular and mild left supraclavicular lymphadenopathy present. Neck supple. CVS: Normal heart rate and rhythm. Heart sounds normal. Pulses normal. Respiratory: No respiratory distress. Breath sounds normal. Back: Normal inspection. Skin: Skin warm and dry. Normal skin color. No rash. Normal skin turgor. Extremities: Extremities exhibit normal ROM. No lower extremity edema. Neuro: Oriented X 3. No motor deficit. No sensory deficit. LABS, X-RAYS, AND EKG EKG: EKG time: (2044). No acute process. No acute ischemia. Rate: 101. Regular narrow-complex tachycardia (ventricular rate 101). Sinus tachycardia. Incomplete RBBB. Non-specific ST segment / T wave abnormalities. Normal EKG. The study has been interpreted contemporaneously by me (and dr dale). The EKG appears to be a good tracing. Interpretation time: 2045. Chest X-ray: Mediastinum normal. Normal Chest X-Ray. (IMPRESSION: 1. Right pleural effusion. 2. Right apical pleural and supraclavicular soft tissue swelling. A CT has been performed. Electronically Final signed by:Nely Casey MD 05/15/2017 9:34:45 PM). The X-rays were interpreted by the radiologist and contemporaneously by me. Interpretation time: 21:59. Chest CT: . (IMPRESSION: 1. Soft tissue thickening with central low density fluid collection involving right apical pleura and apical right axilla. Central low density area may represent an abscess or cystic neoplasm. Constellation of findings is concerning for Pancoast tumor. There is no evidence of bony destruction. 2. There is a small right pleural effusion with right base atelectasis. This may be reactive to an apical pleural inflammation or neoplastic in etiology. 3. Slight heterogeneity in the segmental and subsegmental pulmonary arteries with a questionable nonocclusive clot in the left lateral lower lung segmental artery. No evidence of end organ damage such as left effusion or infarct. 4. Chronic-appearing T7 compression. 5. Discussed with Ara Stockton in the emergency room. Electronically Final signed by:Nely Casey MD 05/15/2017 10:41:28 PM). The study was interpreted by the radiologist and discussed with the radiologist. Laboratory Tests: CBC w Diff: (ROSEANNE: 05/15/2017 20:00) ( MsgRcvd 05/15/2017 20:22) Final results Test Result Flag Units (Reference) WHITE BLOOD COUNT 19.5 H K/uL (4.5-11.5) RED BLOOD COUNT 4.05 L M/uL (4.50-5.90) HEMOGLOBIN 11.6 L gm/dL (13.5-17.5) HEMATOCRIT 35.1 L % (41.0-53.0) MEAN CELL VOLUME 87 fL (80-100) MEAN CORPUSCULAR HGB 29 pg (26-34) MEAN CORPUSCULAR HGB CONC 33 g/dL (31-37) RED CELL DISTRIBUTION WIDTH 14.0 % (11.6-14.8) PLATELET COUNT 678 H K/uL (150-400) NEUTROPHIL % 83.1 H % (50-75) LYMPH % 9.7 L % (25-40) MONO % 5.2 % (3-14) EOSINOPHIL % 1.1 % (0-4) BASOPHIL % 0.9 % (0-2) PT with INR: (ROSEANNE: 05/15/2017 20:00) ( MsgRcvd 05/15/2017 23:16) Final results Test Result Flag Units (Reference) INR 0.9 (0.8-1.2) Low Intensity Therapy: INR 1.5-2.0 PT range 18.5-23.1Mod.Intensity Therapy: INR 2.0-3.0 PT range 23.1-31.5High Intensity Therapy: INR 2.5-3.5 PT range 27.4-35.5High Intensity Therapy 2: INR 3.0-4.0 PT range 31.5-39.3 APTT 33 SECONDS (24-34) [id number]: (ROSEANNE: 05/15/2017 20:00) ( MsgRcvd 05/15/2017 20:27) Final results Test Result Flag Units (Reference) D-DIMER QUANTITATIVE 1.61 H ug/mLFEU (0.27-0.52) The primary value of this quantitative assay relates toits negative predictive value (i.e. exclusion) of pulmonaryembolism/deep vein thrombosis/DIC.Elevated levels of d-dimer may also occur with:, age, cancer, inflammation, liver disease,post-op, infection, hematoma, coronary disease, peripheralarteriopathy, bleeding disorders and thrombolytic treatment.Results should be correlated with other clinical andradiological data.Testing Methodology: Latex Immunoassay CMP: (ROSEANNE: 05/15/2017 20:00) ( MsgRcvd 05/15/2017 20:31) Final results Test Result Flag Units (Reference) GLUCOSE 116 H mg/dL (70-110) BUN 14 mg/dL (7-18) CREATININE 0.9 mg/dL (0.6-1.3) Estimated GFR >60 mL/min Estimated GFR- >60 mL/min Note: Persistent reduction over 3 months in eGFR<60 mL/min/1.73 m2 defines CKD. Patients with eGFR values>=60 mL/min/1.73 m2 may also have CKD if evidence ofpersistent proteinuria. Additional information may be foundat [email or web address].org. SODIUM 139 mmol/L (136-145) POTASSIUM 3.6 mmol/L (3.5-5.1) CHLORIDE 102 mmol/L (98-107) CARBON DIOXIDE 30 mmol/L (21-32) CALCIUM 8.3 L mg/dL (8.5-10.1) TOTAL PROTEIN 7.8 g/dL (6.4-8.2) ALBUMIN 2.5 L g/dL (3.3-5.0) BILIRUBIN, TOTAL 0.2 mg/dL (0.0-1.0) ALKALINE PHOSPHATASE 109 U/L (46-116) AST (SGOT) 28 U/L (15-37) ALT (SGPT) 64 U/L (12-78) Rapid Influenza Screen: (ROSEANNE: 05/15/2017 20:20) ( MsgRcvd 05/15/2017 20:57) Final results SPECIMEN DESCRIPTION: NARES Test Result Flag Units (Reference) RAPID INFLUENZA SCREEN DATE: 05/15/17 INFLUENZA A: NEGATIVE SCREEN FOR INFLUENZA A INFLUENZA B: NEGATIVE SCREEN FOR INFLUENZA B . PROGRESS AND PROCEDURES Course of Care: 2158. Pts case discussed with Dr Mirza, agreed pt needed to be admit or transfer, depending on what official ct report says, and what plan of care we will do, oncology work up vs abscess or something else, agreed to start abx, and speak again when report was in computer 221. pt aware of need for admit/transfer and saying he was not staying, he was leaving, took RN Lily into room as director motion picture and pt again said he was leaving, informed of risks, and said he didn't care Dr Mirza called to inform him 2219. Pt's mother at desk saying pt changed his mind, she made him and he would stay, went back into room to verify if he would stay, pt said yes, and agreed to transfer too Dr Mirza aware that pt would now stay Ct report still not in computer 2300. Spoke to Dr Mirza re CT scan results, agreed to see if [facility] would take pt, and if not [facility] would accept Had [facility] call [facility], no medical beds Having [facility] call Dr Mirza back to let him know admit would be here, since [facility] has no beds, and asked to pull his H&P form 2310. Spoke to Dr Mirza about admit here since [facility] has no beds, now he has decided that it might be in pt's best of care to transfer for possible pulmnology, oncology, and for more specialty care than what we have here 2320. [facility] speaking to bathhouse attendant at [facility] re transfer, whom will talk with hospitalist and call us back 2325. pt's case, labs, ct report reviewed with Dr Dale, whom is assuming care and to finish with transfer 00:29 05/16/17. Discussed with Dr Lorie Victor: Maurilio . She recommends admission here, antibiotics and biopsy. Also anticoagulation. 00:35 05/16/17. Page to Dr Kamara. Discussed with Dr Victor at [place], Dr Mirza and Dr Kamara. 05/15/2017 19:37 BP: 153/80. HR: 91. RR: 20. O2 saturation: 97%. Temp: 100.1 F. Pain level now: 06/11. Vital Signs: have been reviewed as normal and appear to be correct. Discussed case with on-call health care provider, (21:[address] Mirza). Agreed upon treatment plan and decision to admit. Patient/family counseled. Old medical records ordered. Differential Diagnosis: Other possible considerations: flu, viral illness, bronchitis, pneumonia, lung ca. Above considerations are based on history and physical exam. Differential diagnosis was discussed with patient. Disposition orders written. Disposition: Admitted to Acute Care. CLINICAL IMPRESSION Mild leukocytosis with lymphocytosis. (Shortness of Breath). Mass vs abscess right chest. (Electronically signed by Vinod Dale MD 05/16/2017 9:54) Time Seen: 1947; initial patient contact, initial documentation, patient care assumed. Arrived- By private vehicle. Historian- patient and mother. HISTORY OF PRESENT ILLNESS Chief Complaint: FEVER. This started about 1 weeks ago and is still present. The illness is described as moderate. The patient has had a cough, fever of 101 F and muscle aches. He has had difficulty breathing at rest (feels sob). There has been no dyspnea on exertion, orthopnea, paroxysmal nocturnal dyspnea or wheezing. No chest discomfort or pain, sore throat or nasal congestion or discharge. No sinus pressure or sinus drainage. Additional history - No known contact with a sick individual. No recent travel. Similar symptoms previously: None. Recent medical care: The patient was seen recently in a clinic. ( went to clinic correctional officer captain, sent here for eval). REVIEW OF SYSTEMS knot in shoulder, pt states it has been there for 4 days, mom told nurse it has been there long time and she thinks pt has ca. All systems otherwise negative, except as recorded above. PAST HISTORY See nurses notes. PROBLEMS: Leukocytosis. Abscess. MRSA Infection. --19:40 Sheriff España R.N. SOCIAL HISTORY Heavy tobacco smoker. Not exposed to second-hand smoke at home. No alcohol use or drug use. No recent travel. Is a local resident. FAMILY HISTORY uncle had ca. ADDITIONAL NOTES The nursing notes have been reviewed with agreement regarding the chief complaint, HPI, ROS, PMH and patient medications and allergies. PHYSICAL EXAM Vital Signs: 05/15/2017 19:37 BP: 153/80. HR: 91. RR: 20. O2 saturation: 97%. Temp: 100.1 F. Pain level now: 06/11. Have been reviewed as normal and appear to be correct. Blood pressure normal. Heart rate normal. Respiratory rate normal. Febrile. Oxygen saturation normal. Appearance: Alert. No acute distress. Eyes: Pupils equal, round and reactive to light. Eyes normal inspection. ENT: Ears normal. Nose normal. Pharynx normal. Uvula midline. Neck: Abnormal inspection. Marked right supraclavicular and mild left supraclavicular lymphadenopathy present. Neck supple. CVS: Normal heart rate and rhythm. Heart sounds normal. Pulses normal. Respiratory: No respiratory distress. Breath sounds normal. Back: Normal inspection. Skin: Skin warm and dry. Normal skin color. No rash. Normal skin turgor. Extremities: Extremities exhibit normal ROM. No lower extremity edema. Neuro: Oriented X 3. No motor deficit. No sensory deficit. LABS, X-RAYS, AND EKG EKG: EKG time: (2044). No acute process. No acute ischemia. Rate: 101. Regular narrow-complex tachycardia (ventricular rate 101). Sinus tachycardia. Incomplete RBBB. Non-specific ST segment / T wave abnormalities. Normal EKG. The study has been interpreted contemporaneously by me (and dr dale). The EKG appears to be a good tracing. Interpretation time: 2045. Chest X-ray: Mediastinum normal. Normal Chest X-Ray. (IMPRESSION: 1. Right pleural effusion. 2. Right apical pleural and supraclavicular soft tissue swelling. A CT has been performed. Electronically Final signed by:Nely Casey MD 05/15/2017 9:34:45 PM). The X-rays were interpreted by the radiologist and contemporaneously by me. Interpretation time: 21:59. Chest CT: . (IMPRESSION: 1. Soft tissue thickening with central low density fluid collection involving right apical pleura and apical right axilla. Central low density area may represent an abscess or cystic neoplasm. Constellation of findings is concerning for Pancoast tumor. There is no evidence of bony destruction. 2. There is a small right pleural effusion with right base atelectasis. This may be reactive to an apical pleural inflammation or neoplastic in etiology. 3. Slight heterogeneity in the segmental and subsegmental pulmonary arteries with a questionable nonocclusive clot in the left lateral lower lung segmental artery. No evidence of end organ damage such as left effusion or infarct. 4. Chronic-appearing T7 compression. 5. Discussed with Ara Stockton in the emergency room. Electronically Final signed by:Nely Casey MD 05/15/2017 10:41:28 PM). The study was interpreted by the radiologist and discussed with the radiologist. Laboratory Tests: CBC w Diff: (ROSEANNE: 05/15/2017 20:00) ( MsgRcvd 05/15/2017 20:22) Final results Test Result Flag Units (Reference) WHITE BLOOD COUNT 19.5 H K/uL (4.5-11.5) RED BLOOD COUNT 4.05 L M/uL (4.50-5.90) HEMOGLOBIN 11.6 L gm/dL (13.5-17.5) HEMATOCRIT 35.1 L % (41.0-53.0) MEAN CELL VOLUME 87 fL (80-100) MEAN CORPUSCULAR HGB 29 pg (26-34) MEAN CORPUSCULAR HGB CONC 33 g/dL (31-37) RED CELL DISTRIBUTION WIDTH 14.0 % (11.6-14.8) PLATELET COUNT 678 H K/uL (150-400) NEUTROPHIL % 83.1 H % (50-75) LYMPH % 9.7 L % (25-40) MONO % 5.2 % (3-14) EOSINOPHIL % 1.1 % (0-4) BASOPHIL % 0.9 % (0-2) PT with INR: (ROSEANNE: 05/15/2017 20:00) ( [facility] 05/15/2017 23:16) Final results Test Result Flag Units (Reference) INR 0.9 (0.8-1.2) Low Intensity Therapy: INR 1.5-2.0 PT range 18.5-23.1Mod.Intensity Therapy: INR 2.0-3.0 PT range 23.1-31.5High Intensity Therapy: INR 2.5-3.5 PT range 27.4-35.5High Intensity Therapy 2: INR 3.0-4.0 PT range 31.5-39.3 APTT 33 SECONDS (24-34) [id number]: (ROSEANNE: 05/15/2017 20:00) ( [facility] 05/15/2017 20:27) Final results Test Result Flag Units (Reference) D-DIMER QUANTITATIVE 1.61 H ug/mLFEU (0.27-0.52) The primary value of this quantitative assay relates toits negative predictive value (i.e. exclusion) of pulmonaryembolism/deep vein thrombosis/DIC.Elevated levels of d-dimer may also occur with:, age, cancer, inflammation, liver disease,post-op, infection, hematoma, coronary disease, peripheralarteriopathy, bleeding disorders and thrombolytic treatment.Results should be correlated with other clinical andradiological data.Testing Methodology: Latex Immunoassay CMP: (ROSEANNE: 05/15/2017 20:00) ( [facility] 05/15/2017 20:31) Final results Test Result Flag Units (Reference) GLUCOSE 116 H mg/dL (70-110) BUN 14 mg/dL (7-18) CREATININE 0.9 mg/dL (0.6-1.3) Estimated GFR >60 mL/min Estimated GFR- >60 mL/min Note: Persistent reduction over 3 months in eGFR<60 mL/min/1.73 m2 defines CKD. Patients with eGFR values>=60 mL/min/1.73 m2 may also have CKD if evidence ofpersistent proteinuria. Additional information may be foundat [email or web address].org. SODIUM 139 mmol/L (136-145) POTASSIUM 3.6 mmol/L (3.5-5.1) CHLORIDE 102 mmol/L (98-107) CARBON DIOXIDE 30 mmol/L (21-32) CALCIUM 8.3 L mg/dL (8.5-10.1) TOTAL PROTEIN 7.8 g/dL (6.4-8.2) ALBUMIN 2.5 L g/dL (3.3-5.0) BILIRUBIN, TOTAL 0.2 mg/dL (0.0-1.0) ALKALINE PHOSPHATASE 109 U/L (46-116) AST (SGOT) 28 U/L (15-37) ALT (SGPT) 64 U/L (12-78) Rapid Influenza Screen: (ROSEANNE: 05/15/2017 20:20) ( MsgRcvd 05/15/2017 20:57) Final results SPECIMEN DESCRIPTION: NARES Test Result Flag Units (Reference) RAPID INFLUENZA SCREEN DATE: 05/15/17 INFLUENZA A: NEGATIVE SCREEN FOR INFLUENZA A INFLUENZA B: NEGATIVE SCREEN FOR INFLUENZA B . PROGRESS AND PROCEDURES Course of Care: 2158. Pts case discussed with Dr Mirza, agreed pt needed to be admit or transfer, depending on what official ct report says, and what plan of care we will do, oncology work up vs abscess or something else, agreed to start abx, and speak again when report was in computer 2215. pt aware of need for admit/transfer and saying he was not staying, he was leaving, took RN Lily into room as director motion picture and pt again said he was leaving, informed of risks, and said he didn't care Dr Mirza called to inform him 2219. Pt's mother at desk saying pt changed his mind, she made him and he would stay, went back into room to verify if he would stay, pt said yes, and agreed to transfer too Dr Mirza aware that pt would now stay Ct report still not in computer 2300. Spoke to Dr Mirza re CT scan results, agreed to see if [facility] would take pt, and if not [facility] would accept Had adult family home program manager call [facility], no medical beds Having [facility] call Dr Mirza back to let him know admit would be here, since [facility] has no beds, and asked to pull his H&P form 2310. Spoke to Dr Mirza about admit here since [facility] has no beds, now he has decided that it might be in pt's best of care to transfer for possible pulmnology, oncology, and for more specialty care than what we have here [address]19. [facility] speaking to bathhouse attendant at [facility] transfer, whom will talk with hospitalist and call us back 2324. pt's case, labs, ct report reviewed with Dr Dale, whom is assuming care and to finish with transfer. 05/15/2017 19:37 BP: 153/80. HR: 91. RR: 20. O2 saturation: 97%. Temp: 100.1 F. Pain level now: 8/10. Vital Signs: have been reviewed as normal and appear to be correct. Discussed case with on-call health care provider, (21:[address] Mirza). Agreed upon treatment plan and decision to admit. Differential Diagnosis: Other possible considerations: flu, viral illness, bronchitis, pneumonia, lung ca. Above considerations are based on history and physical exam. Differential diagnosis was discussed with patient. Disposition: Transferred. CLINICAL IMPRESSION Mild leukocytosis with lymphocytosis. (Shortness of Breath). (Electronically signed by Ara Stockton A.R.N.P. 05/16/2017 11:59)
--- NOTE | 2017-05-15 23:07 | ED ORDER SUMMARY ---
..... Patient: ILIANA SOLOMON OrderSheet [facility] VisitID: [id number] [place] [address] 56y, M Registration Date/Time: 05/15/2017 ORDER SHEET Weight: 72.5 kg (stated) Allergies: No Known Drug Allergy GENERAL ORDERS: Chest 2V Urgent (20:03 05/15/2017 HBivens A.R.N.P.) (Ack 20:09 AMcQuoid ER Tech1) (20:15 MCampbell) CBC w Diff Urgent (20:03 05/15/2017 HBivens A.R.N.P.) (Ack 20:09 AMcQuoid ER Tech1) (20:17 AMcQuoid ER Tech1) CMP Urgent (20:03 05/15/2017 HBivens A.R.N.P.) (Ack 20:09 AMcQuoid ER Tech1) (20:17 AMcQuoid ER Tech1) EKG - ER Stat (20:09 05/15/2017 HBivens A.R.N.P.) (Ack 20:09 AMcQuoid ER Tech1) (21:06 RKaruga) Rapid Influenza Screen (Nasal Pharyngeal) (nares) Urgent (20:10 05/15/2017 HBivens A.R.N.P.) (Ack 20:17 AMcQuoid ER Tech1) (20:20 AMcQuoid ER Tech1) D-Dimer Urgent (20:11 05/15/2017 HBivens A.R.N.P.) (20:17 AMcQuoid ER Tech1) CTA Thorax w Cont (No) (normal) Urgent (20:49 05/15/2017 HBivens A.R.N.P.) (Ack 20:55 AMcQuoid ER Tech1) (21:12 MCampbell) Blood Culture (No) (N/A) Urgent (22:54 05/15/2017 HBivens A.R.N.P.) (Ack 23:09 RKaruga) (2:47 HSoule) PT with INR Urgent (22:54 05/15/2017 HBivens A.R.N.P.) (Ack 23:09 RKaruga) (2:47 HSoule) PTT Urgent (22:54 05/15/2017 HBivens A.R.N.P.) (Ack 23:09 [facility]) (2:47 HSoule) Lactate, Serum Urgent (22:54 05/15/2017 HBivens A.R.N.P.) (Ack 23:09 [facility]) (2:47 HSoule) PCT (Procalcitonin) Urgent (22:54 05/15/2017 HBivens A.R.N.P.) (Ack 23:09 [facility]) (2:47 HSoule) Urine Drug Screen Urgent (01:13 05/16/2017 Katlyn FARMER) (2:22 SSambou R.N.) MEDICATION ORDERS: Lovenox Subcut 1 mg/kg (NOW) (00:35 05/16/2017 Katlyn FARMER) (1:07 SSambou R.N.) Tylenol PO 1,000 mg (NOW) (01:08 05/16/2017 SSambou R.N. verbal order read back to HBivens A.R.N.P.) (1:09 SSambou R.N.) IV FLUIDS: IV Saline Lock (20:03 05/15/2017 HBivens A.R.N.P.) (20:16 SSambou R.N.) Ceftriaxone IV 1 gm/50mL (NOW) (22:53 05/15/2017 HBivens A.R.N.P.) (Ack 22:59 SSambou R.N.) (23:14 HSoule) Ativan IV 1 mg (HIGH ALERT MEDICATION, NOW) (23:10 05/15/2017 HBivens A.R.N.P.) (23:17 SSambou R.N.) Zosyn IV 3.375 gm/50mL (NOW) (00:35 05/16/2017 Katlyn FARMER) (Ack 1:11 HSoule) (2:22 SSambou R.N.) Levaquin IV 750 mg/150 mL (NOW) (00:35 05/16/2017 Katlyn FARMER) (0:57 SSambou R.N.) ORDER SHEET NOTES: [Electronically signed by Sheriff Eldon España (02:57 05/16/2017)] [Electronically signed by Vinod Bunch MD (09:54 05/16/2017)] [Electronically signed by Ara Stockton (11:59 05/16/2017)] [Electronically locked/signed by Sheriff Eldon España (02:57 05/16/2017)]
--- NOTE | 2017-05-15 23:07 | ED CLINICAL REPORT ---
Clinical Report - Physicians/Mid Levels [facility] [address] [place] [address] 05/15/2017 19:32 Patient: ILIANA SOLOMON Time Seen: 1948; initial patient contact, initial documentation, patient care assumed. Arrived- By private vehicle. Historian- patient and mother. CPT: ER phys charges level 5 (#[id number]). HISTORY OF PRESENT ILLNESS Chief Complaint: FEVER. This started about 1 weeks ago and is still present. The illness is described as moderate. The patient has had a cough, fever of 101 F and muscle aches. He has had difficulty breathing at rest (feels sob). There has been no dyspnea on exertion, orthopnea, paroxysmal nocturnal dyspnea or wheezing. No chest discomfort or pain, sore throat or nasal congestion or discharge. No sinus pressure or sinus drainage. Additional history - No known contact with a sick individual. No recent travel. Similar symptoms previously: None. Recent medical care: The patient was seen recently in a clinic. ( went to clinic din[facility] operator slag, sent here for eval). REVIEW OF SYSTEMS No headache, eye discomfort, nausea, vomiting or diarrhea. No abdominal pain, pedal edema, calf pain, difficulty with urination or skin rash. No enlarged lymph nodes, sore throat, diabetic symptoms or easy bruising. The patient has had joint pain. knot in shoulder, pt states it has been there for 4 days, mom told nurse it has been there long time and she thinks pt has ca. All systems otherwise negative, except as recorded above. PAST HISTORY See nurses notes. PROBLEMS: Leukocytosis. Abscess. MRSA Infection. --19:40 Sheriff España R.N. SOCIAL HISTORY Heavy tobacco smoker. Not exposed to second-hand smoke at home. No alcohol use or drug use. No recent travel. Is a local resident. FAMILY HISTORY uncle had ca. ADDITIONAL NOTES The nursing notes have been reviewed with agreement regarding the chief complaint, HPI, ROS, PMH and patient medications and allergies. PHYSICAL EXAM Vital Signs: 05/15/2017 19:37 BP: 153/80. HR: 91. RR: 20. O2 saturation: 97%. Temp: 100.1 F. Pain level now: 06/11. Have been reviewed as normal and appear to be correct. Blood pressure normal. Heart rate normal. Respiratory rate normal. Febrile. Oxygen saturation normal. Appearance: Alert. No acute distress. Eyes: Pupils equal, round and reactive to light. Eyes normal inspection. ENT: Ears normal. Nose normal. Pharynx normal. Uvula midline. Neck: Abnormal inspection. Marked right supraclavicular and mild left supraclavicular lymphadenopathy present. Neck supple. CVS: Normal heart rate and rhythm. Heart sounds normal. Pulses normal. Respiratory: No respiratory distress. Breath sounds normal. Back: Normal inspection. Skin: Skin warm and dry. Normal skin color. No rash. Normal skin turgor. Extremities: Extremities exhibit normal ROM. No lower extremity edema. Neuro: Oriented X 3. No motor deficit. No sensory deficit. LABS, X-RAYS, AND EKG EKG: EKG time: (2044). No acute process. No acute ischemia. Rate: 101. Regular narrow-complex tachycardia (ventricular rate 101). Sinus tachycardia. Incomplete RBBB. Non-specific ST segment / T wave abnormalities. Normal EKG. The study has been interpreted contemporaneously by me (and dr dale). The EKG appears to be a good tracing. Interpretation time: 2045. Chest X-ray: Mediastinum normal. Normal Chest X-Ray. (IMPRESSION: 1. Right pleural effusion. 2. Right apical pleural and supraclavicular soft tissue swelling. A CT has been performed. Electronically Final signed by:Nely Casey MD 05/15/2017 9:34:45 PM). The X-rays were interpreted by the radiologist and contemporaneously by me. Interpretation time: 21:59. Chest CT: . (IMPRESSION: 1. Soft tissue thickening with central low density fluid collection involving right apical pleura and apical right axilla. Central low density area may represent an abscess or cystic neoplasm. Constellation of findings is concerning for Pancoast tumor. There is no evidence of bony destruction. 2. There is a small right pleural effusion with right base atelectasis. This may be reactive to an apical pleural inflammation or neoplastic in etiology. 3. Slight heterogeneity in the segmental and subsegmental pulmonary arteries with a questionable nonocclusive clot in the left lateral lower lung segmental artery. No evidence of end organ damage such as left effusion or infarct. 4. Chronic-appearing T7 compression. 5. Discussed with Ara Stockton in the emergency room. Electronically Final signed by:Nely Casey MD 05/15/2017 10:41:28 PM). The study was interpreted by the radiologist and discussed with the radiologist. Laboratory Tests: CBC w Diff: (ROSEANNE: 05/15/2017 20:00) ( MsgRcvd 05/15/2017 20:22) Final results Test Result Flag Units (Reference) WHITE BLOOD COUNT 19.5 H K/uL (4.5-11.5) RED BLOOD COUNT 4.05 L M/uL (4.50-5.90) HEMOGLOBIN 11.6 L gm/dL (13.5-17.5) HEMATOCRIT 35.1 L % (41.0-53.0) MEAN CELL VOLUME 87 fL (80-100) MEAN CORPUSCULAR HGB 29 pg (26-34) MEAN CORPUSCULAR HGB CONC 33 g/dL (31-37) RED CELL DISTRIBUTION WIDTH 14.0 % (11.6-14.8) PLATELET COUNT 678 H K/uL (150-400) NEUTROPHIL % 83.1 H % (50-75) LYMPH % 9.7 L % (25-40) MONO % 5.2 % (3-14) EOSINOPHIL % 1.1 % (0-4) BASOPHIL % 0.9 % (0-2) PT with INR: (ROSEANNE: 05/15/2017 20:00) ( MsgRcvd 05/15/2017 23:16) Final results Test Result Flag Units (Reference) INR 0.9 (0.8-1.2) Low Intensity Therapy: INR 1.5-2.0 PT range 18.5-23.1Mod.Intensity Therapy: INR 2.0-3.0 PT range 23.1-31.5High Intensity Therapy: INR 2.5-3.5 PT range 27.4-35.5High Intensity Therapy 2: INR 3.0-4.0 PT range 31.5-39.3 APTT 33 SECONDS (24-34) [id number]: (ROSEANNE: 05/15/2017 20:00) ( MsgRcvd 05/15/2017 20:27) Final results Test Result Flag Units (Reference) D-DIMER QUANTITATIVE 1.61 H ug/mLFEU (0.27-0.52) The primary value of this quantitative assay relates toits negative predictive value (i.e. exclusion) of pulmonaryembolism/deep vein thrombosis/DIC.Elevated levels of d-dimer may also occur with:, age, cancer, inflammation, liver disease,post-op, infection, hematoma, coronary disease, peripheralarteriopathy, bleeding disorders and thrombolytic treatment.Results should be correlated with other clinical andradiological data.Testing Methodology: Latex Immunoassay CMP: (ROSEANNE: 05/15/2017 20:00) ( MsgRcvd 05/15/2017 20:31) Final results Test Result Flag Units (Reference) GLUCOSE 116 H mg/dL (70-110) BUN 14 mg/dL (7-18) CREATININE 0.9 mg/dL (0.6-1.3) Estimated GFR >60 mL/min Estimated GFR- >60 mL/min Note: Persistent reduction over 3 months in eGFR<60 mL/min/1.73 m2 defines CKD. Patients with eGFR values>=60 mL/min/1.73 m2 may also have CKD if evidence ofpersistent proteinuria. Additional information may be foundat [email or web address]. SODIUM 139 mmol/L (136-145) POTASSIUM 3.6 mmol/L (3.5-5.1) CHLORIDE 102 mmol/L (98-107) CARBON DIOXIDE 30 mmol/L (21-32) CALCIUM 8.3 L mg/dL (8.5-10.1) TOTAL PROTEIN 7.8 g/dL (6.4-8.2) ALBUMIN 2.5 L g/dL (3.3-5.0) BILIRUBIN, TOTAL 0.2 mg/dL (0.0-1.0) ALKALINE PHOSPHATASE 109 U/L (46-116) AST (SGOT) 28 U/L (15-37) ALT (SGPT) 64 U/L (12-78) Rapid Influenza Screen: (ROSEANNE: 05/15/2017 20:20) ( MsgRcvd 05/15/2017 20:57) Final results SPECIMEN DESCRIPTION: NARES Test Result Flag Units (Reference) RAPID INFLUENZA SCREEN DATE: 05/15/17 INFLUENZA A: NEGATIVE SCREEN FOR INFLUENZA A INFLUENZA B: NEGATIVE SCREEN FOR INFLUENZA B . PROGRESS AND PROCEDURES Course of Care: 2158. Pts case discussed with Dr Mirza, agreed pt needed to be admit or transfer, depending on what official ct report says, and what plan of care we will do, oncology work up vs abscess or something else, agreed to start abx, and speak again when report was in computer 221. pt aware of need for admit/transfer and saying he was not staying, he was leaving, took RN Lily into room as salon assistant and pt again said he was leaving, informed of risks, and said he didn't care Dr Mirza called to inform him 2219. Pt's mother at desk saying pt changed his mind, she made him and he would stay, went back into room to verify if he would stay, pt said yes, and agreed to transfer too Dr Mirza aware that pt would now stay Ct report still not in computer 2300. Spoke to Dr Mirza re CT scan results, agreed to see if [facility] would take pt, and if not [facility] [place] [facility] [place] [facility] [facility] [place] Mirza back to let him know admit would be here, since [facility] has no beds, and asked to pull his H&P form 2310. Spoke to Dr Mirza about admit here since [facility] has no beds, now he has decided that it might be in pt's best of care to transfer for possible pulmnology, oncology, and for more specialty care than what we have here 2320. [facility] [place] to pump house technician at [facility] re transfer, whom will talk with hospitalist and call us back 2325. pt's case, labs, ct report reviewed with Dr Dale, whom is assuming care and to finish with transfer 00:29 05/16/17. Discussed with Dr Lorei Victor: Maurilio . She recommends admission here, antibiotics and biopsy. Also anticoagulation. 00:35 05/16/17. Page to Dr Kamara. Discussed with Dr Victor at [place], Dr Mirza and Dr Kamara. 05/15/2017 19:37 BP: 153/80. HR: 91. RR: 20. O2 saturation: 97%. Temp: 100.1 F. Pain level now: 06/11. Vital Signs: have been reviewed as normal and appear to be correct. Discussed case with on-call health care provider, (21:[address] Mirza). Agreed upon treatment plan and decision to admit. Patient/family counseled. Old medical records ordered. Differential Diagnosis: Other possible considerations: flu, viral illness, bronchitis, pneumonia, lung ca. Above considerations are based on history and physical exam. Differential diagnosis was discussed with patient. Disposition orders written. Disposition: Admitted to Acute Care. CLINICAL IMPRESSION Mild leukocytosis with lymphocytosis. (Shortness of Breath). Mass vs abscess right chest. (Electronically signed by Vinod Dale MD 05/16/2017 9:54) Time Seen: 1947; initial patient contact, initial documentation, patient care assumed. Arrived- By private vehicle. Historian- patient and mother. HISTORY OF PRESENT ILLNESS Chief Complaint: FEVER. This started about 1 weeks ago and is still present. The illness is described as moderate. The patient has had a cough, fever of 101 F and muscle aches. He has had difficulty breathing at rest (feels sob). There has been no dyspnea on exertion, orthopnea, paroxysmal nocturnal dyspnea or wheezing. No chest discomfort or pain, sore throat or nasal congestion or discharge. No sinus pressure or sinus drainage. Additional history - No known contact with a sick individual. No recent travel. Similar symptoms previously: None. Recent medical care: The patient was seen recently in a clinic. ( went to clinic din[facility] operator slag, sent here for eval). REVIEW OF SYSTEMS knot in shoulder, pt states it has been there for 4 days, mom told nurse it has been there long time and she thinks pt has ca. All systems otherwise negative, except as recorded above. PAST HISTORY See nurses notes. PROBLEMS: Leukocytosis. Abscess. MRSA Infection. --19:40 Sheriff España R.N. SOCIAL HISTORY Heavy tobacco smoker. Not exposed to second-hand smoke at home. No alcohol use or drug use. No recent travel. Is a local resident. FAMILY HISTORY uncle had ca. ADDITIONAL NOTES The nursing notes have been reviewed with agreement regarding the chief complaint, HPI, ROS, PMH and patient medications and allergies. PHYSICAL EXAM Vital Signs: 05/15/2017 19:37 BP: 153/80. HR: 91. RR: 20. O2 saturation: 97%. Temp: 100.1 F. Pain level now: 06/11. Have been reviewed as normal and appear to be correct. Blood pressure normal. Heart rate normal. Respiratory rate normal. Febrile. Oxygen saturation normal. Appearance: Alert. No acute distress. Eyes: Pupils equal, round and reactive to light. Eyes normal inspection. ENT: Ears normal. Nose normal. Pharynx normal. Uvula midline. Neck: Abnormal inspection. Marked right supraclavicular and mild left supraclavicular lymphadenopathy present. Neck supple. CVS: Normal heart rate and rhythm. Heart sounds normal. Pulses normal. Respiratory: No respiratory distress. Breath sounds normal. Back: Normal inspection. Skin: Skin warm and dry. Normal skin color. No rash. Normal skin turgor. Extremities: Extremities exhibit normal ROM. No lower extremity edema. Neuro: Oriented X 3. No motor deficit. No sensory deficit. LABS, X-RAYS, AND EKG EKG: EKG time: (2044). No acute process. No acute ischemia. Rate: 101. Regular narrow-complex tachycardia (ventricular rate 101). Sinus tachycardia. Incomplete RBBB. Non-specific ST segment / T wave abnormalities. Normal EKG. The study has been interpreted contemporaneously by me (and dr dale). The EKG appears to be a good tracing. Interpretation time: 2045. Chest X-ray: Mediastinum normal. Normal Chest X-Ray. (IMPRESSION: 1. Right pleural effusion. 2. Right apical pleural and supraclavicular soft tissue swelling. A CT has been performed. Electronically Final signed by:Nely Casey MD 05/15/2017 9:34:45 PM). The X-rays were interpreted by the radiologist and contemporaneously by me. Interpretation time: 21:59. Chest CT: . (IMPRESSION: 1. Soft tissue thickening with central low density fluid collection involving right apical pleura and apical right axilla. Central low density area may represent an abscess or cystic neoplasm. Constellation of findings is concerning for Pancoast tumor. There is no evidence of bony destruction. 2. There is a small right pleural effusion with right base atelectasis. This may be reactive to an apical pleural inflammation or neoplastic in etiology. 3. Slight heterogeneity in the segmental and subsegmental pulmonary arteries with a questionable nonocclusive clot in the left lateral lower lung segmental artery. No evidence of end organ damage such as left effusion or infarct. 4. Chronic-appearing T7 compression. 5. Discussed with Ara Stockton in the emergency room. Electronically Final signed by:Nely Casey MD 05/15/2017 10:41:28 PM). The study was interpreted by the radiologist and discussed with the radiologist. Laboratory Tests: CBC w Diff: (ROSEANNE: 05/15/2017 20:00) ( MsgRcvd 05/15/2017 20:22) Final results Test Result Flag Units (Reference) WHITE BLOOD COUNT 19.5 H K/uL (4.5-11.5) RED BLOOD COUNT 4.05 L M/uL (4.50-5.90) HEMOGLOBIN 11.6 L gm/dL (13.5-17.5) HEMATOCRIT 35.1 L % (41.0-53.0) MEAN CELL VOLUME 87 fL (80-100) MEAN CORPUSCULAR HGB 29 pg (26-34) MEAN CORPUSCULAR HGB CONC 33 g/dL (31-37) RED CELL DISTRIBUTION WIDTH 14.0 % (11.6-14.8) PLATELET COUNT 678 H K/uL (150-400) NEUTROPHIL % 83.1 H % (50-75) LYMPH % 9.7 L % (25-40) MONO % 5.2 % (3-14) EOSINOPHIL % 1.1 % (0-4) BASOPHIL % 0.9 % (0-2) PT with INR: (ROSEANNE: 05/15/2017 20:00) ( [facility] 05/15/2017 23:16) Final results Test Result Flag Units (Reference) INR 0.9 (0.8-1.2) Low Intensity Therapy: INR 1.5-2.0 PT range 18.5-23.1Mod.Intensity Therapy: INR 2.0-3.0 PT range 23.1-31.5High Intensity Therapy: INR 2.5-3.5 PT range 27.4-35.5High Intensity Therapy 2: INR 3.0-4.0 PT range 31.5-39.3 APTT 33 SECONDS (24-34) [id number]: (ROSEANNE: 05/15/2017 20:00) ( [facility] 05/15/2017 20:27) Final results Test Result Flag Units (Reference) D-DIMER QUANTITATIVE 1.61 H ug/mLFEU (0.27-0.52) The primary value of this quantitative assay relates toits negative predictive value (i.e. exclusion) of pulmonaryembolism/deep vein thrombosis/DIC.Elevated levels of d-dimer may also occur with:, age, cancer, inflammation, liver disease,post-op, infection, hematoma, coronary disease, peripheralarteriopathy, bleeding disorders and thrombolytic treatment.Results should be correlated with other clinical andradiological data.Testing Methodology: Latex Immunoassay CMP: (ROSEANNE: 05/15/2017 20:00) ( [facility] 05/15/2017 20:31) Final results Test Result Flag Units (Reference) GLUCOSE 116 H mg/dL (70-110) BUN 14 mg/dL (7-18) CREATININE 0.9 mg/dL (0.6-1.3) Estimated GFR >60 mL/min Estimated GFR- >60 mL/min Note: Persistent reduction over 3 months in eGFR<60 mL/min/1.73 m2 defines CKD. Patients with eGFR values>=60 mL/min/1.73 m2 may also have CKD if evidence ofpersistent proteinuria. Additional information may be foundat [email or web address]. SODIUM 139 mmol/L (136-145) POTASSIUM 3.6 mmol/L (3.5-5.1) CHLORIDE 102 mmol/L (98-107) CARBON DIOXIDE 30 mmol/L (21-32) CALCIUM 8.3 L mg/dL (8.5-10.1) TOTAL PROTEIN 7.8 g/dL (6.4-8.2) ALBUMIN 2.5 L g/dL (3.3-5.0) BILIRUBIN, TOTAL 0.2 mg/dL (0.0-1.0) ALKALINE PHOSPHATASE 109 U/L (46-116) AST (SGOT) 28 U/L (15-37) ALT (SGPT) 64 U/L (12-78) Rapid Influenza Screen: (ROSEANNE: 05/15/2017 20:20) ( MsgRcvd 05/15/2017 20:57) Final results SPECIMEN DESCRIPTION: NARES Test Result Flag Units (Reference) RAPID INFLUENZA SCREEN DATE: 05/15/17 INFLUENZA A: NEGATIVE SCREEN FOR INFLUENZA A INFLUENZA B: NEGATIVE SCREEN FOR INFLUENZA B . PROGRESS AND PROCEDURES Course of Care: 2158. Pts case discussed with Dr Mirza, agreed pt needed to be admit or transfer, depending on what official ct report says, and what plan of care we will do, oncology work up vs abscess or something else, agreed to start abx, and speak again when report was in computer 2215. pt aware of need for admit/transfer and saying he was not staying, he was leaving, took RN Lily into room as salon assistant and pt again said he was leaving, informed of risks, and said he didn't care Dr Mirza called to inform him 2219. Pt's mother at desk saying pt changed his mind, she made him and he would stay, went back into room to verify if he would stay, pt said yes, and agreed to transfer too Dr Mirza aware that pt would now stay Ct report still not in computer 2300. Spoke to Dr Mirza re CT scan results, agreed to see if [facility] would take pt, and if not [facility] accept Had property disposal manager call [facility], no medical beds [place] [facility] [place] Mirza back to let him know admit would be here, since [facility] has no beds, and asked to pull his H&P form 2310. Spoke to Dr Mirza about admit here since [facility] has no beds, now he has decided that it might be in pt's best of care to transfer for possible pulmnology, oncology, and for more specialty care than what we have here 2319. [facility] [place] to pump house technician at [facility] transfer, whom will talk with hospitalist and call us back 2324. pt's case, labs, ct report reviewed with Dr Dale, whom is assuming care and to finish with transfer. 05/15/2017 19:37 BP: 153/80. HR: 91. RR: 20. O2 saturation: 97%. Temp: 100.1 F. Pain level now: 8/10. Vital Signs: have been reviewed as normal and appear to be correct. Discussed case with on-call health care provider, (21:[address] Mirza). Agreed upon treatment plan and decision to admit. Differential Diagnosis: Other possible considerations: flu, viral illness, bronchitis, pneumonia, lung ca. Above considerations are based on history and physical exam. Differential diagnosis was discussed with patient. Disposition: Transferred. CLINICAL IMPRESSION Mild leukocytosis with lymphocytosis. (Shortness of Breath). (Electronically signed by Ara Stockton A.R.N.P. 05/16/2017 11:59)
--- NOTE | 2017-05-15 23:07 | ED NURSING NOTES ---
Clinical Report - [facility] [address] [place] [address] 05/15/2017 19:32 Patient: ILIANA SOLOMON TRIAGE Triage time 19:38. Acuity: LEVEL 3. Chief Complaint: SHORTNESS OF BREATH. --19:41 Sheriff España R.N. 19:37 05/15/17. BP: 153/80. HR: 91. RR: 20. O2 saturation: 97%. Temp: 100.1 F. Pain level now: 06/11. --19:41 Sheriff España R.N. Weight: 72.5 kg stated. Height/Length: 71 inches Per Patient. BMI: 22.3. --19:36 Sheriff España R.N. Medications None. --19:39 Sheriff España R.N. Allergies No Known Drug Allergy. --19:39 Sheriff España R.N. History Arrived by private vehicle. Historian: patient. Accompanied by family. Onset. (3 ago). ( Lump on right neck, non injury related.). SURGERY HX: ( Lip, Right toe, Left index finger). SOCIAL HX: Heavy tobacco smoker- less than 1 pack per day. No alcohol use or drug use. FALL RISK ASSESSMENT: Fall risk assessment completed. No fall risk identified. NUTRITIONAL RISK ASSESSMENT: The nutritional risk assessment revealed no deficiencies. FUNCTIONAL ASSESSMENT: Functional assessment: no impairments noted. LEARNING NEEDS ASSESSMENT: The learning needs assessment revealed no barriers. SKIN INTEGRITY ASSESSMENT: Skin integrity risk assessment completed. No skin integrity risk identified. --19:41 Sheriff España R.N. PROBLEMS: Leukocytosis. Abscess. MRSA Infection. --19:40 Sheriff España R.N. PHYSICAL ASSESSMENT Ambulatory to room. Patient gowned. GENERAL / NEURO / PSYCH: Alert. Oriented X 4. Appears in no acute distress. HEENT: Mucous membranes are pink. RESPIRATORY: No respiratory distress. Respirations not labored. CVS: Normal sinus rhythm noted. Capillary refill less than 2 seconds. SKIN: Skin is warm and dry. Normal skin turgor. --19:42 Sheriff España R.N. NURSING PROGRESS NOTES Head of bed elevated. Two patient identifiers checked. Call light placed in reach. Side rails up x 2. Bed placed in lowest position. Brakes of bed on. --19:42 Sheriff España R.N. 20:06 05/15/2017 Site #1 started via IV in the right forearm with an 20g angiocath, with aseptic technique and good blood return; two attempts. Blood drawn: rainbow set and cultures x1. Labeled in the presence of the patient and sent to the lab. Saline lock flushed with 10 mL saline. --20:16 Sheriff España R.N. EKG time: (20:45). EKG was performed by a tech and shown to the ED physician. --21:24 Payton Joya 23:09 05/15/2017 Started 1 gm of Ceftriaxone IVPB in bag #1 50 mL; at 150 mL/hr over 20 minute(s) via site #1 via IV pump. Allergies verified and confirmed 5 rights. IV patency established. IV site checked: no pain, redness, or swelling. IV flushed thoroughly pre- and post-medication administration. --23:14 NirmalSelam carrerah 23:17 05/15/2017 Ativan (LORazepam) IVP 1 mg given over 1 minute(s) via site #1. Allergies verified, confirmed 5 rights and sedative warning given to the patient. IV patency established. IV site checked: no pain, redness, or swelling. IV flushed thoroughly pre- and post-medication administration. IVP given by RN. --23:17 Sheriff España R.N. 23:25 05/15/17. BP: 114/66. HR: 94. RR: 20. O2 saturation: 96%. Temp: 100.8 F. Pain level now: 06/11. --23:25 Sheriff España R.N. Critical value relayed to ED by Lab. Critical value received by ANGELES Meza. Lactate level: 2.6. Critical value read back. Verified lab result and patient ID. ED physician and charge nurse notifed of critical value. --00:09 Susana Martinez 00:44 05/16/2017 Tylenol (Acetaminophen) PO 1000 mg given. Allergies verified and confirmed 5 rights. --01:09 Sheriff España R.N. 00:52 05/16/2017 Started 750 mg of Levaquin (Levofloxacin) IVPB in bag #1 100 mL; at 100 mL/hr over 1.5 hour(s) via site #1 via IV pump. Allergies verified and confirmed 5 rights. IV patency established. IV site checked: no pain, redness, or swelling. IV flushed thoroughly pre- and post-medication administration. --00:57 Sheriff España R.N. 01:02 05/16/2017 Lovenox (Enoxaparin Sodium) Subcutaneous 75 mg given. Given in the left upper arm. Allergies verified and confirmed 5 rights. --01:07 Sheriff España R.N. 02:22 05/16/2017 Started 3.375 gm of Zosyn (Piperacillin Sod-Tazobactam So) IVPB in bag #1 50 mL; at 100 mL/hr over 30 minute(s) via site #1 via IV pump. Allergies verified and confirmed 5 rights. IV patency established. IV site checked: no pain, redness, or swelling. IV flushed thoroughly pre- and post-medication administration. --02:22 Sheriff España R.N. DISPOSITION / DISCHARGE 02:19 05/16/17. BP: 114/60. HR: 86. RR: 20. O2 saturation: 98%. --02:20 Sheriff España R.N. 02:55 05/16/17. BP: 105/62. HR: 81. RR: 20. O2 saturation: 99%. --02:56 Sheriff España R.N. Admitted (0254 AM). Transported via stretcher by transport team. Report was given to a nurse via a phone call. Report included patient's care, treatment, medications, reviewed medication reconcilliation, and condition (including any recent changes or anticipated changes). All questions were answered. Report was acknowledged. Bed obtained and ready. Patient's personal items include: shirt, pants, socks and shoes; items were placed in belongings bag, given to the patient and transported with the patient. Collection of belongings was witnessed by 1 nurse. --02:57 Sheriff España R.N. Locked/Released at 05/16/2017 2:57 by Sheriff España R.N.
--- NOTE | 2017-05-16 01:19 | Progress Note ---
Subjective General Admission History and Physical Examination Patient Name: Kenny Connelly Admission Date: May 16, 2017 Primary Care Provider: None Attending Physician: Jean-Paul Vogel M.D. Admitting Physician: Slade Mirza M.D. Basket Hand Weaver: Jorge Alberto Kamara M.D. Code Status: FULL CODE Room: 204-B Status: Inpatient, ACU SUBJECTIVE Historian: Patient Reliability: Poor Chief Complaint: Neck pain, fever History of Present Illness: The patient is a 56-year-old white male with a significant past medical history of illicit drug use-methamphetamine, nicotine dependence-smoking, hepatitis C, who presented to [facility] emergency department secondary to complaints of right neck pain. [facility] ER evaluation was consistent with right axillary/apical pleural mass versus abscess, pulmonary embolism, illicit IV drug use-methamphetamine, nicotine dependence-smoking, and anemia. Secondary to the above, the patient was admitted by Slade Mirza M.D. for further evaluation and treatment. The history of present was began approximately one week prior to admission when the patient developed right shoulder neck pain. This is associated with cough, fever 102, muscle aches, and generalized weakness. There was a history of shortness of breath. Secondary to the above the patient presented to [facility] emergency department for further evaluation and treatment. [facility] ER evaluation showed the patient to have vital signs of blood pressure 153/80 mmHg, heart rate 91/minute, respiratory rate 20/minute, temperature 100.1 Fahrenheit orally. O2 sat 97% room air. The patient was noted to have prominence in the supraclavicular fossa right side. This was tender to palpation. D-dimer was elevated. WBC elevated at 19.5. ESR 81. CT scan was consistent with right apical pleural mass/axillary mass consistent with possible tumor versus abscess. CT also showed segmental pulmonary embolism but was indeterminate. There was pleural effusion present right side. Secondary to the above, the patient was admitted with a diagnosis of right sided pleural/axillary mass rule out abscess rule out tumor, right pleural effusion, pulmonary embolism, history of IV methamphetamine usage, nicotine dependence-smoking, and anemia. PAST MEDICAL HISTORY Illnesses: 1. IVDA-methamphetamine 2. Nicotine dependence-smoking Allergies: 1. No known drug allergies Medications: 1. None Surgery: 1. Appendectomy 2. Left index finger partial amputation due to crush injury Injuries: 1. Crush injury left hand Hospitalizations: 1. For above surgery and medical problems. FAMILY HISTORY Parents: 1. Father, Gibson, , 40, cause unknown, 2. Mother, Cassie, living, 77, cancer type unknown Siblings: 1. The patient has 6 male siblings, 2 female siblings one with cancer type unknown Children: 1. Male, living, 32, healthy 2. Female, living, 38, healthy Other significant family history: None SOCIAL HISTORY 1. Marital Status: 2. Nondenominational: None 3. Education: Ninth grade 4. 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 Occupational health exposures: None HABITS 1. Tobacco: Cigarettes 45 pack years, continues to smoke 1 pack per day 2. Drugs: IVDA-methamphetamine ongoing use 3. Alcohol: None 4. Caffeine: Soft drinks-24 (12 ounce cans) Mountain Dew daily HEALTH SUPERVISION Item/Test 1. No recent IMMUNIZATIONS: 1. Pneumococcal: No previous 2. Influenza: No previous 3. Tetanus: 2013 ADVANCED DIRECTIVES: 1. Living well: No 2. POLST: No 3. Code Status: FULL CODE 4. Durable Power [place] [employer] Health care: No 5. Donor card: No REVIEW OF SYSTEMS Remarkable for those things stated in the history of present illness and past medical history. Seventeen point review of system completed with the following notable findings: Eyes: Decreased visual acuity requiring corrective lenses Mouth: Edentulous Review system was otherwise noncontributory with no positive findings. Physical Exam Vital Signs / I&Os Blood pressure: 153/80 mmHg Heart rate: 91/minute Respiratory rate: 20/minute Temperature: 100.1 Fahrenheit orally Pulse oximetry: 97% room air General Appearance Alert, Oriented X3, Cooperative, Mild distress HEENT Atraumatic, PERRLA, EOMI, Moist mucous membranes, conjunctiva injected Lungs Normal air movement, Decreased BS (R) base Neck Supple, No JVD, (R) supraclavicular mass, tender Cardiovascular Regular rate and rhythm, Normal S1 and S2, No murmurs, gallops, rubs Abdomen Normal bowel sounds, Soft, No tenderness, No guarding Extremities No cyanosis, No edema Neurological Cranial nerves intact, Strength 5/5 x4 ext's, No lateralizing signs Psych/Mental Status Mental status normal, Mood normal LAB Results Laboratory Tests 05/15 Chemistry Plasma Sodium (136 - 145 mmol/L) 139 Plasma Potassium (3.5 - 5.1 mmol/L) 3.6 Plasma Chloride (98 - 107 mmol/L) 102 CO2 (Enzymatic) (21 - 32 mmol/L) 30 BUN (7 - 18 mg/dL) 14 Creatinine (0.6 - 1.3 mg/dL) 0.9 Est GFR ( Amer) (mL/min) >60 Est GFR (Non-Af Amer) (mL/min) >60 Glucose (70 - 110 mg/dL) 116 Lactic Acid (0.4 - 2.0 mmol/L) 2.7 Plasma Calcium (8.5 - 10.1 mg/dL) 8.3 Total Bilirubin (0.0 - 1.0 mg/dL) 0.2 AST (15 - 37 U/L) 28 ALT (12 - 78 U/L) 64 Alkaline Phosphatase (46 - 116 U/L) 109 Total Protein (6.4 - 8.2 g/dL) 7.8 Albumin (3.3 - 5.0 g/dL) 2.5 Procalcitonin (0 - 0.5 ng/mL) <0.5 Coagulation INR (0.8 - 1.2) 0.9 APTT (24 - 34 SECONDS) 33 D-Dimer, Quantitative (0.27 - 0.52 ug/mLFEU) 1.61 Hematology WBC (4.5 - 11.5 K/uL) 19.5 RBC (4.50 - 5.90 M/uL) 4.05 Hgb (13.5 - 17.5 gm/dL) 11.6 Hct (41.0 - 53.0 %) 35.1 MCV (80 - 100 fL) 87 MCH (26 - 34 pg) 29 RDW (11.6 - 14.8 %) 14.0 Neut % (Auto) (50 - 75 %) 83.1 Lymph % (Auto) (25 - 40 %) 9.7 [place] % (Auto) (3 - 14 %) 5.2 Eos % (Auto) (0 - 4 %) 1.1 Baso % (Auto) (0 - 2 %) 0.9 Plt Count, EDTA (150 - 400 K/uL) 678 PUBS MCHC (31 - 37 g/dL) 33 Microbiology Date/Time Procedure - Status Source Growth 05/15 2355 Blood Culture - RECD BLOOD 05/15 2020 Influenza Screen - COMP NASALPHAR 05/15 2000 Blood Culture - RECD BLOOD Imaging Chest X-Ray IMPRESSION: 1. Right pleural effusion. 2. Right apical pleural and supraclavicular soft tissue swelling. A CT has been performed. Dictated by: LAUREEN ROLLINS MD D: JOSUÉ;05/15/172133 CT Angiogram Thorax IMPRESSION: 1. Soft tissue thickening with central low density fluid collection involving right apical pleura and apical right axilla. Central low density area may represent an abscess or cystic neoplasm. Constellation of findings is concerning for Pancoast tumor. There is no evidence of bony destruction. 2. There is a small right pleural effusion with right base atelectasis. This may be reactive to an apical pleural inflammation or neoplastic in etiology. 3. Slight heterogeneity in the segmental and subsegmental pulmonary arteries with a questionable nonocclusive clot in the left lateral lower lung segmental artery. No evidence of end organ damage such as left effusion or infarct. 4. Chronic-appearing T7 compression. 5. Discussed with Ara Stockton in the emergency room. Dictated by: LAUREEN ROLLINS MD D: JOSUÉ;05/15/17 4921 Assessment and Plan Problem List 1. Pleural mass Status Acute Onset Date Unknown Plan -The patient presents with pleural/right axillary mass which may represent abscess versus tumor -Vancomycin/Zosyn -Blood cultures -Surgical consultation Dr. Jorge Alberto Kamara for possible incision and drainage versus excision -Procalcitonin within normal limits -Lactic acid mildly elevated 2. Pulmonary embolism Status Acute Onset Date Unknown Plan -Patient with CT findings suggestive of segmental pulmonary emboli -Findings somewhat equivocal. We'll check pulmonary VQ scan -Lovenox 70 mg subcutaneous twice a day -Monitor -Hold other agents until possible surgical intervention 3. Methamphetamine abuse Status Chronic Onset Date Unknown Plan -Patient with history of methamphetamine abuse -Patient has used recently up to one week prior to admission -Tox screen pending -Per to drug treatment post hospitalization 4. Nicotine dependence Status Chronic Onset Date Unknown Plan -Patient with history of nicotine dependence-smoking -NicoDerm patch -Smoking cessation education -Encourage smoking abstinence post discharge 5. Anemia Status Acute Onset Date Unknown Plan -Patient with findings of mild anemia -Check B12, folate, iron studies -Monitor Current status: Fair, unstable Anticipated discharge date: Anticipated discharge 4-5 days Anticipated discharge placement: Home Patient care time: Time in chart review, patient interview, physical exam, CPOE, and care documentation: 70 mins Visit to patient today: 3 Complexity of care: High DVT prophylaxis: Lovenox E&M Codes Admission: Inpt-High/62888 E&M Codes Admission: Inpt-High/40363
--- NOTE | 2017-05-16 01:19 | Progress Note ---
Subjective General Admission History and Physical Examination Patient Name: Kenny Connelly Admission Date: May 16, 2017 Primary Care Provider: None Attending Physician: Jean-Paul Vogel M.D. Admitting Physician: Slade Mirza M.D. Metallurgical Technician: Jorge Alberto Kamara M.D. Code Status: FULL CODE Room: 204-B Status: Inpatient, ACU SUBJECTIVE Historian: Patient Reliability: Poor Chief Complaint: Neck pain, fever History of Present Illness: The patient is a 56-year-old white male with a significant past medical history of illicit drug use-methamphetamine, nicotine dependence-smoking, hepatitis C, who presented to [facility] emergency department secondary to complaints of right neck pain. [facility] ER evaluation was consistent with right axillary/apical pleural mass versus abscess, pulmonary embolism, illicit IV drug use-methamphetamine, nicotine dependence-smoking, and anemia. Secondary to the above, the patient was admitted by Slade Mirza M.D. for further evaluation and treatment. The history of present was began approximately one week prior to admission when the patient developed right shoulder neck pain. This is associated with cough, fever 102, muscle aches, and generalized weakness. There was a history of shortness of breath. Secondary to the above the patient presented to [facility] emergency department for further evaluation and treatment. [facility] ER evaluation showed the patient to have vital signs of blood pressure 153/80 mmHg, heart rate 91/minute, respiratory rate 20/minute, temperature 100.1 Fahrenheit orally. O2 sat 97% room air. The patient was noted to have prominence in the supraclavicular fossa right side. This was tender to palpation. D-dimer was elevated. WBC elevated at 19.5. ESR 81. CT scan was consistent with right apical pleural mass/axillary mass consistent with possible tumor versus abscess. CT also showed segmental pulmonary embolism but was indeterminate. There was pleural effusion present right side. Secondary to the above, the patient was admitted with a diagnosis of right sided pleural/axillary mass rule out abscess rule out tumor, right pleural effusion, pulmonary embolism, history of IV methamphetamine usage, nicotine dependence-smoking, and anemia. PAST MEDICAL HISTORY Illnesses: 1. IVDA-methamphetamine 2. Nicotine dependence-smoking Allergies: 1. No known drug allergies Medications: 1. None Surgery: 1. Appendectomy 2. Left index finger partial amputation due to crush injury Injuries: 1. Crush injury left hand Hospitalizations: 1. For above surgery and medical problems. FAMILY HISTORY Parents: 1. Father, Gibson, , 40, cause unknown, 2. Mother, Cassie, living, 77, cancer type unknown Siblings: 1. The patient has 6 male siblings, 2 female siblings one with cancer type unknown Children: 1. Male, living, 32, healthy 2. Female, living, 38, healthy Other significant family history: None SOCIAL HISTORY 1. Marital Status: 2. Jew: None 3. Education: Ninth grade 4. 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 Occupational health exposures: None HABITS 1. Tobacco: Cigarettes 45 pack years, continues to smoke 1 pack per day 2. Drugs: IVDA-methamphetamine ongoing use 3. Alcohol: None 4. Caffeine: Soft drinks-24 (12 ounce cans) Mountain Dew daily HEALTH SUPERVISION Item/Test 1. No recent IMMUNIZATIONS: 1. Pneumococcal: No previous 2. Influenza: No previous 3. Tetanus: 2013 ADVANCED DIRECTIVES: 1. Living well: No 2. POLST: No 3. Code Status: FULL CODE 4. Durable Power [employer] Health care: No 5. Donor card: No REVIEW OF SYSTEMS Remarkable for those things stated in the history of present illness and past medical history. Seventeen point review of system completed with the following notable findings: Eyes: Decreased visual acuity requiring corrective lenses Mouth: Edentulous Review system was otherwise noncontributory with no positive findings. Physical Exam Vital Signs / I&Os Blood pressure: 153/80 mmHg Heart rate: 91/minute Respiratory rate: 20/minute Temperature: 100.1 Fahrenheit orally Pulse oximetry: 97% room air General Appearance Alert, Oriented X3, Cooperative, Mild distress HEENT Atraumatic, PERRLA, EOMI, Moist mucous membranes, conjunctiva injected Lungs Normal air movement, Decreased BS (R) base Neck Supple, No JVD, (R) supraclavicular mass, tender Cardiovascular Regular rate and rhythm, Normal S1 and S2, No murmurs, gallops, rubs Abdomen Normal bowel sounds, Soft, No tenderness, No guarding Extremities No cyanosis, No edema Neurological Cranial nerves intact, Strength 5/5 x4 ext's, No lateralizing signs Psych/Mental Status Mental status normal, Mood normal LAB Results Laboratory Tests 05/15 Chemistry Plasma Sodium (136 - 145 mmol/L) 139 Plasma Potassium (3.5 - 5.1 mmol/L) 3.6 Plasma Chloride (98 - 107 mmol/L) 102 CO2 (Enzymatic) (21 - 32 mmol/L) 30 BUN (7 - 18 mg/dL) 14 Creatinine (0.6 - 1.3 mg/dL) 0.9 Est GFR ( Amer) (mL/min) >60 Est GFR (Non-Af Amer) (mL/min) >60 Glucose (70 - 110 mg/dL) 116 Lactic Acid (0.4 - 2.0 mmol/L) 2.7 Plasma Calcium (8.5 - 10.1 mg/dL) 8.3 Total Bilirubin (0.0 - 1.0 mg/dL) 0.2 AST (15 - 37 U/L) 28 ALT (12 - 78 U/L) 64 Alkaline Phosphatase (46 - 116 U/L) 109 Total Protein (6.4 - 8.2 g/dL) 7.8 Albumin (3.3 - 5.0 g/dL) 2.5 Procalcitonin (0 - 0.5 ng/mL) <0.5 Coagulation INR (0.8 - 1.2) 0.9 APTT (24 - 34 SECONDS) 33 D-Dimer, Quantitative (0.27 - 0.52 ug/mLFEU) 1.61 Hematology WBC (4.5 - 11.5 K/uL) 19.5 RBC (4.50 - 5.90 M/uL) 4.05 Hgb (13.5 - 17.5 gm/dL) 11.6 Hct (41.0 - 53.0 %) 35.1 MCV (80 - 100 fL) 87 MCH (26 - 34 pg) 29 RDW (11.6 - 14.8 %) 14.0 Neut % (Auto) (50 - 75 %) 83.1 Lymph % (Auto) (25 - 40 %) 9.7 [place] % (Auto) (3 - 14 %) 5.2 Eos % (Auto) (0 - 4 %) 1.1 Baso % (Auto) (0 - 2 %) 0.9 Plt Count, EDTA (150 - 400 K/uL) 678 PUBS MCHC (31 - 37 g/dL) 33 Microbiology Date/Time Procedure - Status Source Growth 05/15 2355 Blood Culture - RECD BLOOD 05/15 2020 Influenza Screen - COMP NASALPHAR 05/15 2000 Blood Culture - RECD BLOOD Imaging Chest X-Ray IMPRESSION: 1. Right pleural effusion. 2. Right apical pleural and supraclavicular soft tissue swelling. A CT has been performed. Dictated by: LAUREEN ROLLINS MD D: JOSUÉ;05/15/172133 CT Angiogram Thorax IMPRESSION: 1. Soft tissue thickening with central low density fluid collection involving right apical pleura and apical right axilla. Central low density area may represent an abscess or cystic neoplasm. Constellation of findings is concerning for Pancoast tumor. There is no evidence of bony destruction. 2. There is a small right pleural effusion with right base atelectasis. This may be reactive to an apical pleural inflammation or neoplastic in etiology. 3. Slight heterogeneity in the segmental and subsegmental pulmonary arteries with a questionable nonocclusive clot in the left lateral lower lung segmental artery. No evidence of end organ damage such as left effusion or infarct. 4. Chronic-appearing T7 compression. 5. Discussed with Ara Stockton in the emergency room. Dictated by: LAUREEN ROLLINS MD D: JOSUÉ;05/15/17 9301 Assessment and Plan Problem List 1. Pleural mass Status Acute Onset Date Unknown Plan -The patient presents with pleural/right axillary mass which may represent abscess versus tumor -Vancomycin/Zosyn -Blood cultures -Surgical consultation Dr. Jorge Alberto Kamara for possible incision and drainage versus excision -Procalcitonin within normal limits -Lactic acid mildly elevated 2. Pulmonary embolism Status Acute Onset Date Unknown Plan -Patient with CT findings suggestive of segmental pulmonary emboli -Findings somewhat equivocal. We'll check pulmonary VQ scan -Lovenox 70 mg subcutaneous twice a day -Monitor -Hold other agents until possible surgical intervention 3. Methamphetamine abuse Status Chronic Onset Date Unknown Plan -Patient with history of methamphetamine abuse -Patient has used recently up to one week prior to admission -Tox screen pending -Per to drug treatment post hospitalization 4. Nicotine dependence Status Chronic Onset Date Unknown Plan -Patient with history of nicotine dependence-smoking -NicoDerm patch -Smoking cessation education -Encourage smoking abstinence post discharge 5. Anemia Status Acute Onset Date Unknown Plan -Patient with findings of mild anemia -Check B12, folate, iron studies -Monitor Current status: Fair, unstable Anticipated discharge date: Anticipated discharge 4-5 days Anticipated discharge placement: Home Patient care time: Time in chart review, patient interview, physical exam, CPOE, and care documentation: 70 mins Visit to patient today: 3 Complexity of care: High DVT prophylaxis: Lovenox E&M Codes Admission: Inpt-High/42692 E&M Codes Admission: Inpt-High/31128
[2017-05-16 03:08] VITALS: BP 102/65
--- NOTE | 2017-05-16 07:25 | NUR ---
PT ADMITTED TO THE FLOOR FROM ED VIA STRETCHER AND TRANSFERRED HIMSELF BY SLIDING ONTO THE BED. PT WAS LETHARGIC ALL NIGHT, ONLY PROVIDING SHORT ANSWERS TO QUESTIONS AND FALLING BACK TO SLEEP AFTERWARD. HE HAS BEEN ABLE TO FOLLOW COMMANDS. NO COMPLAINTS OF PAIN, VITAL SIGNS STABLE.
[2017-05-16 07:27] VITALS: BP 111/66
--- NOTE | 2017-05-16 09:39 | NUR ---
PATIENT A AND O X 4 THIS AM. SLEEPY DUE TO NOC ADMIT. TRANSFERRED TO ROOM 202 DUE TO RECENT HISTORY OF MRSA IN R FOOT. SWAB SENT ALREADY TO R/O MRSA. PATIENT INDEPENDENT IN ROOM. STATES PAIN IN R NECK AND TORADOL IV GIVEN. NPO FOR NOW. WILL CONTINUE TO MONITOR.
--- NOTE | 2017-05-16 09:54 | NUR ---
Pharmacy Consultation Note: Reason: Vancomycin Therapy Indication: Pneumonia/Pleural Effusion Ht: 180 cm Wt; 74 kg SCr: 0.9 Other Antibiotics: Piperacillin/tazobactam 3.375 g q 6 h Discussion: Based upon this patients renal function and indication, vancomycin will be dosed at 2000 mg as a single loading dose. This will be followed by vancomycin 1000mg every 8 hours starting on 05/16/17 at 1800. Trough levels will be checked on 05/17/17 at 0930 with a goal of 15 - 20. Pharmacy will continue to monitor and adjust as necessary.
--- NOTE | 2017-05-16 11:21 | Consultation Report ---
History Chief Complaint Right supraclavicular mass History of Present Illness 56-year-old methamphetamine addict, presented to the emergency room with swelling of his right suprapubic region, shortness of breath and cough. Ongoing problem for proximal one week. History of elevated temperature 102. In the emergency room he was noted have an elevated d-dimer. Noted on CTA to have segmental pulmonary emboli. He was also noted to have a right apical/right axillary fullness consistent with Pancoast tumor versus abscess. Patient History 1. Pleural mass 2. Pulmonary embolism 3. Methamphetamine abuse Social History . Once in 1 daughter alive and well. Smokes a pack of cigarettes per day. He does not drink alcohol. He drinks Mountain Dew on a daily basis. Methamphetamine addict. 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 PAST MEDICAL/SURGICAL HISTORY: Status post appendectomy. Status post repair crush injury left index finger. FAMILY HISTORY: Father age 40, unknown etiology. Mother alive at age 77. Cancer of unknown cause. 6 brothers alive and well 2 sisters, one of which has cancer of unknown etiology. Medications and Allergies Medications Current Medications Sig/Pavithra Start time Last Medication Dose Route Stop Time Status Admin Clarify Med Order See Dose 0930 05/17 0930 AC Insts (1) IV 05/17 1200 Vancomycin HCl/ 200 ML Q8H 05/16 1800 AC Dextrose IV Ferrous Sulfate 325 MG DAILY 05/16 0900 AC PO Piperacillin/ 50 ML Q6HR 05/16 0600 AC 05/16 Tazobactam/Dextrose IV 0703 Sodium Chloride/ 1,000 ML ASDIRECTED 05/16 0245 AC 05/16 Electrolytes IV 0414 Enoxaparin Sodium 70 MG BID 05/16 0145 AC 05/16 SC 0822 Vancomycin HCl See Dose .[PER PHARMACY] 05/16 0145 AC 05/16 Insts (2) IV 0945 Famotidine/Sodium 50 ML Q12HR 05/16 0137 AC 05/16 Chloride IV 0821 Acetaminophen 650 MG Q6H PRN 05/16 0130 AC PO Ketorolac 30 MG Q6H PRN 05/16 0130 AC 05/16 Tromethamine IV 05/16 1931 0822 Ondansetron HCl 4 MG Q6H PRN 05/16 0130 AC IV Dose Instructions: (1)Clarify Med Order: VANCOMYCIN TROUGH (2)Vancomycin HCl: DOSING PER PHARMACY Allergies Coded Allergies: NKA (02/11/17) Reconcile Medications Scheduled Medications Sulfamethoxazole-Trimethoprim (Bactrim DS (double strength)) 1 TAB TAB 1 TAB PO BID Review of Systems Other Positive history for hepatitis C No history of rheumatic fever, heart murmurs, requiring antibiotics, bleeding tendencies, or blood transfusions. Remaining 12 point review of systems negative Physical Exam Vital Signs / I&Os Vital Signs Date Time Temp Pulse Resp B/P Pulse O2 O2 Flow FiO2 Ox Delivery Rate 05/16 07 97.7 76 20 111/66 98 Room Air 05/16 0313 Room Air 99 05/16 0308 99.0 70 20 102/65 99 Room Air General Appearance Cooperative, No acute distress HEENT PERRLA, Moist mucous membranes Lungs Clear to auscultation Neck No masses, No thyromegaly, No lymphadenopathy Cardiovascular Regular rate and rhythm Abdomen Normal bowel sounds, Soft Extremities No cyanosis, No clubbing, No edema Skin warm and dry Neurological No lateralizing signs Psych/Mental Status Mental status normal, Mood normal Other Right suprapatellar region nontender to palpation. No fluctuation. Firm. No axillary adenopathy on the right. LAB Results Laboratory Tests 05/15 UNK UNK Chemistry Plasma Sodium (136 - 145 mmol/L) 139 Plasma Potassium (3.5 - 5.1 mmol/L) 3.6 Plasma Chloride (98 - 107 mmol/L) 102 CO2 (Enzymatic) (21 - 32 mmol/L) 30 BUN (7 - 18 mg/dL) 14 Creatinine (0.6 - 1.3 mg/dL) 0.9 Est GFR ( Amer) (mL/min) >60 Est GFR (Non-Af Amer) (mL/min) >60 Glucose (70 - 110 mg/dL) 116 Lactic Acid (0.4 - 2.0 mmol/L) 2.7 Plasma Calcium (8.5 - 10.1 mg/dL) 8.3 Total Bilirubin (0.0 - 1.0 mg/dL) 0.2 AST (15 - 37 U/L) 28 ALT (12 - 78 U/L) 64 Alkaline Phosphatase (46 - 116 U/L) 109 Creatine Kinase (24 - 260 U/L) 83 C-Reactive Protein (0.0 - 0.9 mg/dL) 6.9 Total Protein (6.4 - 8.2 g/dL) 7.8 Albumin (3.3 - 5.0 g/dL) 2.5 Procalcitonin (0 - 0.5 ng/mL) <0.5 Coagulation INR (0.8 - 1.2) 0.9 APTT (24 - 34 SECONDS) 33 D-Dimer, Quantitative (0.27 - 0.52 ug/mLFEU) 1.61 Hematology WBC (4.5 - 11.5 K/uL) 19.5 RBC (4.50 - 5.90 M/uL) 4.05 Hgb (13.5 - 17.5 gm/dL) 11.6 Hct (41.0 - 53.0 %) 35.1 MCV (80 - 100 fL) 87 MCH (26 - 34 pg) 29 RDW (11.6 - 14.8 %) 14.0 Neut % (Auto) (50 - 75 %) 83.1 Lymph % (Auto) (25 - 40 %) 9.7 [place] % (Auto) (3 - 14 %) 5.2 Eos % (Auto) (0 - 4 %) 1.1 Baso % (Auto) (0 - 2 %) 0.9 Plt Count, EDTA (150 - 400 K/uL) 678 PUBS MCHC (31 - 37 g/dL) 33 ESR Westergren (0 - 20 mm/hr) 81 /15 15 05/16 UNK 0138 0202 Chemistry Plasma Magnesium (1.8 - 2.4 mg/dL) 1.9 Toxicology Urine Opiates Screen (NEGATIVE) Cancelled NEGATIVE Urine Methadone Screen (NEGATIVE) Cancelled NEGATIVE Ur Barbiturates Screen (NEGATIVE) Cancelled NEGATIVE U Amphetamin/Meth Scrn (NEGATIVE) Cancelled POSITIVE MDMA (Ecstasy) Screen (NEGATIVE) Cancelled NEGATIVE U Benzodiazepines Scrn (NEGATIVE) Cancelled NEGATIVE Urine Cocaine Screen (NEGATIVE) Cancelled NEGATIVE U Cannabinoids Screen (NEGATIVE) Cancelled NEGATIVE Urines Urine Color YELLOW Urine Appearance CLEAR Urine pH (5.0 - 8.0) 7.0 Ur Specific [place] (1.010 - 1.030) 1.010 Urine Protein (NEGATIVE) NEGATIVE Urine Ketones (NEGATIVE) NEGATIVE Urine Blood (NEGATIVE) NEGATIVE Urine Nitrite (NEGATIVE) NEGATIVE Urine Bilirubin (NEGATIVE) NEGATIVE Urine Urobilinogen (0.2 - 1.0 EU/dL) 0.2 Ur Leukocyte Esterase (NEGATIVE) NEGATIVE Urine RBC (0 - 1 rbc/hpf) 0-1 Urine WBC (0 - 1 wbc/hpf) 0-1 Ur Epithelial Cells (0 - 5 EPI/hpf) NONE SEEN Urine Bacteria (NONE SEEN) NONE SEEN Urine Glucose (NEGATIVE) NEGATIVE Urine Comment CULT NOT INDICATED 05/16 05/16 05/16 05/16 0558 0558 0558 0737 Chemistry Iron (35 - 150 ug/dL) 17 TIBC (260 - 445 ug/dL) 166 Iron Saturation (15 - 50 %) 10 Creatine Kinase (24 - 260 U/L) 47 Vitamin B12 (211 - 946 pg/mL) 326 Folate (>3.0 ng/mL) 9.0 Procalcitonin (0 - 0.5 ng/mL) <0.5 Hematology WBC (4.5 - 11.5 K/uL) 18.2 RBC (4.50 - 5.90 M/uL) 3.79 Hgb (13.5 - 17.5 gm/dL) 11.0 Hct (41.0 - 53.0 %) 32.6 MCV (80 - 100 fL) 86 MCH (26 - 34 pg) 29 RDW (11.6 - 14.8 %) 13.8 Neut % (Auto) (50 - 75 %) 80 Lymph % (Auto) (25 - 40 %) 11 [place] % (Auto) (3 - 14 %) 9 Eos % (Auto) (0 - 4 %) 0 Baso % (Auto) (0 - 2 %) 0 Band Neutrophils % (0 - 8 %) 0 Metamyelocytes % (0 - 1 %) 0 Myelocytes (0 - 1 %) 0 Other Cell Type 0 Plt Count, EDTA (150 - 400 K/uL) 638 PUBS MCHC (31 - 37 g/dL) 34 Microbiology Date/Time Procedure - Status Source Growth 05/15 235 Blood Culture - RECD BLOOD 05/15 2020 Influenza Screen - COMP NASALPHAR 05/15 2000 Blood Culture - RECD BLOOD Assessment and Plan Problem List 1. Pleural mass Onset Date Unknown Status Acute Plan The patient will get ultrasound of the supraclavicular region to determine if this is a solid/cystic/abscess. We will treat appropriately. When confirmed diagnosis.
--- NOTE | 2017-05-16 12:00 | ED MED RECONCILIATION SUMMARY ---
Patient: ILIANA SOLOMON Medication Reconciliation Report [facility] VisitID: [id number] [address] [place] [address] 56y, M Registration Date/Time: 05/15/2017 Weight: 72.5 kg Height/Length: 71 in. BMI: 22.3 ALLERGIES: No Known Drug Allergy The patient's Home Medications are listed below: NONE. The source(s) of the original Home Medication information: Not obtained. The following Medications were given to the patient in the Emergency Department: Ceftriaxone [IVPB] IVPB bolus 0, then 1 gm 150 mL/hr, administered: 05/15/2017 11:09:00 PM Ativan [IVP] IVP 1 mg, administered: 05/15/2017 11:17:00 PM Levaquin [IVPB] IVPB bolus 0, then 750 mg 100 mL/hr, administered: 05/16/2017 12:52:00 AM Lovenox [Subcutaneous] Subcutaneous 75 mg, administered: 05/16/2017 1:02:00 AM Tylenol [PO] PO 1000 mg, administered: 05/16/2017 12:44:00 AM Zosyn [IVPB] IVPB bolus 0, then 3.375 gm 100 mL/hr, administered: 05/16/2017 2:22:00 AM The following Medications were prescribed to the patient: None.
--- NOTE | 2017-05-16 12:00 | ED MAR SUMMARY ---
..... Medication Administration Record [facility] [address] [place] [address] Patient: ILIANA SOLOMON Visit ID: [id number] 56y, M Weight: 72.5 kg Height/Length: 71 in BMI: 22.3 ALLERGIES: No Known Drug Allergy Start 23:09 05/15/2017 Lily Kinney, Medication Administered: CEFTRIAXONE [IVPB], Dose: 1 gm IVPB over 20 minute(s), Rate: 150 mL/hr, Dispensed: 50 mL bag, Site: #1 right forearm. Medication Ordered: Ceftriaxone IV 1 gm/50mL (NOW). Given 23:17 05/15/2017 Sheriff España R.N. Medication Administered: ATIVAN [IVP] (LORAZEPAM), Dose: 1 mg IVP over 1 minute(s), Site: #1 right forearm. Medication Ordered: Ativan IV 1 mg (HIGH ALERT MEDICATION, NOW). Given 00:44 05/16/2017 Sheriff España R.N. Medication Administered: TYLENOL [PO] (ACETAMINOPHEN), Dose: 1000 mg PO. Medication Ordered: Tylenol PO 1,000 mg (NOW). Start 00:52 05/16/2017 Sheriff España R.N. Medication Administered: LEVAQUIN [IVPB] (LEVOFLOXACIN), Dose: 750 mg IVPB over 1.5 hour(s), Rate: 100 mL/hr, Dispensed: 100 mL bag, Site: #1 right forearm. Medication Ordered: Levaquin IV 750 mg/150 mL (NOW). Given 01:02 05/16/2017 Sheriff España R.N. Medication Administered: LOVENOX [SUBCUTANEOUS] (ENOXAPARIN SODIUM), Dose: 75 mg Subcutaneous. Medication Ordered: Lovenox Subcut 1 mg/kg (NOW). Start 02:22 05/16/2017 Sheriff España R.N. Medication Administered: ZOSYN [IVPB] (PIPERACILLIN SOD-TAZOBACTAM SO), Dose: 3.375 gm IVPB over 30 minute(s), Rate: 100 mL/hr, Dispensed: 50 mL bag, Site: #1 right forearm. Medication Ordered: Zosyn IV 3.375 gm/50mL (NOW).
--- NOTE | 2017-05-16 12:00 | ED MAR SUMMARY ---
..... Medication Administration Record [facility] [address] [place] [address] Patient: ILIANA SOLOMON Visit ID: [id number] 56y, M Weight: 72.5 kg Height/Length: 71 in BMI: 22.3 ALLERGIES: No Known Drug Allergy Start 23:09 05/15/2017 Lily Kinney, Medication Administered: CEFTRIAXONE [IVPB], Dose: 1 gm IVPB over 20 minute(s), Rate: 150 mL/hr, Dispensed: 50 mL bag, Site: #1 right forearm. Medication Ordered: Ceftriaxone IV 1 gm/50mL (NOW). Given 23:17 05/15/2017 Sheriff España R.N. Medication Administered: ATIVAN [IVP] (LORAZEPAM), Dose: 1 mg IVP over 1 minute(s), Site: #1 right forearm. Medication Ordered: Ativan IV 1 mg (HIGH ALERT MEDICATION, NOW). Given 00:44 05/16/2017 Sheriff España R.N. Medication Administered: TYLENOL [PO] (ACETAMINOPHEN), Dose: 1000 mg PO. Medication Ordered: Tylenol PO 1,000 mg (NOW). Start 00:52 05/16/2017 Sheriff España R.N. Medication Administered: LEVAQUIN [IVPB] (LEVOFLOXACIN), Dose: 750 mg IVPB over 1.5 hour(s), Rate: 100 mL/hr, Dispensed: 100 mL bag, Site: #1 right forearm. Medication Ordered: Levaquin IV 750 mg/150 mL (NOW). Given 01:02 05/16/2017 Sheriff España R.N. Medication Administered: LOVENOX [SUBCUTANEOUS] (ENOXAPARIN SODIUM), Dose: 75 mg Subcutaneous. Medication Ordered: Lovenox Subcut 1 mg/kg (NOW). Start 02:22 05/16/2017 Sheriff España R.N. Medication Administered: ZOSYN [IVPB] (PIPERACILLIN SOD-TAZOBACTAM SO), Dose: 3.375 gm IVPB over 30 minute(s), Rate: 100 mL/hr, Dispensed: 50 mL bag, Site: #1 right forearm. Medication Ordered: Zosyn IV 3.375 gm/50mL (NOW).
--- NOTE | 2017-05-16 12:00 | ED DISCHARGE INSTRUCTIONS ---
Patient: ILIANA SOLOMON General Instructions [facility] VisitID: [id number] [address] [place] [address] 56y, M Registration Date/Time: 05/15/2017 Mild leukocytosis with lymphocytosis. (Shortness of Breath). Mass vs abscess right chest. (Electronically signed by Vinod Bunch MD 05/16/2017 9:54) Mild leukocytosis with lymphocytosis. (Shortness of Breath). (Electronically signed by Ara Stockton A.R.N.P. 05/16/2017 11:59)
--- NOTE | 2017-05-16 12:00 | ED MED RECONCILIATION SUMMARY ---
Patient: ILIANA SOLOMON Medication Reconciliation Report [facility] VisitID: [id number] [address] [place] [address] 56y, M Registration Date/Time: 05/15/2017 Weight: 72.5 kg Height/Length: 71 in. BMI: 22.3 ALLERGIES: No Known Drug Allergy The patient's Home Medications are listed below: NONE. The source(s) of the original Home Medication information: Not obtained. The following Medications were given to the patient in the Emergency Department: Ceftriaxone [IVPB] IVPB bolus 0, then 1 gm 150 mL/hr, administered: 05/15/2017 11:09:00 PM Ativan [IVP] IVP 1 mg, administered: 05/15/2017 11:17:00 PM Levaquin [IVPB] IVPB bolus 0, then 750 mg 100 mL/hr, administered: 05/16/2017 12:52:00 AM Lovenox [Subcutaneous] Subcutaneous 75 mg, administered: 05/16/2017 1:02:00 AM Tylenol [PO] PO 1000 mg, administered: 05/16/2017 12:44:00 AM Zosyn [IVPB] IVPB bolus 0, then 3.375 gm 100 mL/hr, administered: 05/16/2017 2:22:00 AM The following Medications were prescribed to the patient: None.
--- NOTE | 2017-05-16 12:00 | ED DISCHARGE INSTRUCTIONS ---
Patient: ILIANA SOLOMON General Instructions [facility] VisitID: [id number] [address] [place] [address] 56y, M Registration Date/Time: 05/15/2017 Mild leukocytosis with lymphocytosis. (Shortness of Breath). Mass vs abscess right chest. (Electronically signed by Vinod Bunch MD 05/16/2017 9:54) Mild leukocytosis with lymphocytosis. (Shortness of Breath). (Electronically signed by Ara Stockton A.R.N.P. 05/16/2017 11:59)
--- NOTE | 2017-05-16 12:03 | DIAGNOSTIC IMAGING REPORT ---
PROCEDURE: US SOFT TISSUE ANYWHERE INDICATION: abcess right apex; see CT scan for localization TECHNIQUE: Tyson scale and color duplex ultrasound. COMPARISON: CT thorax 05/15/2017. FINDINGS: There is a 4 x 2 x 1.0 cm supraclavicular hypoechoic structure with surrounding mildly hyperemic indurated soft tissues corresponding to the abscess seen on CT scan. This is located 3.1 cm deep to the scan. IMPRESSION: 1. Ultrasound guided right supraclavicular abscess localization, 3.1 cm deep to the skin.
[2017-05-16 12:39] VITALS: BP 99/64
--- NOTE | 2017-05-16 14:28 | DIAGNOSTIC IMAGING REPORT ---
PROCEDURE: NM PULMONARY PERFUSION W/VENT INDICATION: Indeterminate CTA TECHNIQUE: 43 mCi of technetium-99m DTPA was aerosolized and inhaled. 6 mCi technetium-99m MAA was injected intravenously. Ventilation and perfusion images were obtained in the AP, PA, right lateral, left lateral, BARAKAT, SPANISH, RPO and LPO positions. COMPARISON: Chest x-ray And CT pulmonary entry 05/15/2017 05/15/2017. FINDINGS: There are no mismatched ventilation and perfusion defects. Small ventilation defect in the right posterior sulcus consistent with small effusion and atelectasis pill IMPRESSION: 1. No evidence of a pulmonary embolus 2. Results discussed with Dr. Vogel.
--- NOTE | 2017-05-16 14:28 | DIAGNOSTIC IMAGING REPORT ---
PROCEDURE: NM PULMONARY PERFUSION W/VENT INDICATION: Indeterminate CTA TECHNIQUE: 43 mCi of technetium-99m DTPA was aerosolized and inhaled. 6 mCi technetium-99m MAA was injected intravenously. Ventilation and perfusion images were obtained in the AP, PA, right lateral, left lateral, BARAKAT, FINNISH, RPO and LPO positions. COMPARISON: Chest x-ray And CT pulmonary entry 05/15/2017 05/15/2017. FINDINGS: There are no mismatched ventilation and perfusion defects. Small ventilation defect in the right posterior sulcus consistent with small effusion and atelectasis pill IMPRESSION: 1. No evidence of a pulmonary embolus 2. Results discussed with Dr. Vogel.
[2017-05-16 15:06] VITALS: BP 110/67
--- NOTE | 2017-05-16 15:50 | NUR ---
PATIENT SLEEPING MUCH OF DAY. WENT DOWN FOR VQ SCAN AND ULTRASOUND. RESTING IN BED COMFORTABLY. MOTHER CALLED X 2 FOR UPDATES ON PATIENT. 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 AWAITING MRSA SWAB RESULTS.
[2017-05-16 18:18] VITALS: BP 100/51
--- NOTE | 2017-05-16 19:56 | NUR ---
RESTING IN BED WATCHING TV, C/O 7/10 THROBBING/CONSTANT R NECK PAIN. PRN PAIN MEDS GIVEN.
[2017-05-16 21:28] VITALS: BP 114/68
[2017-05-17] VITALS (11 sets, daily range): BP systolic 104–128; BP diastolic 50–88
--- NOTE | 2017-05-17 10:24 | NUR ---
Pharmacy Progress Note: Reason; Vancomycin Therapy Indication: Abscess Vancomycin trough: 10.7 Discussion: Based upon the most recent trough and clinical improvement, vancomycin will be conitnued at the cuurent regimen of 1000mg every 8 hours. Trough levels will be checked in 48 hours on 05/19/17 at 0930 with a goal of 10-20. Pharmacy will continue to monitor and adjust as needed.
--- NOTE | 2017-05-17 10:47 | NUR ---
PATIENT RESTING IN BED. R NECK CLEANSED FOR SURGICAL PROCEDURE.
--- NOTE | 2017-05-17 11:19 | NUR ---
PATIENT OFF FLOOR TO OR FOR I AND D.
--- NOTE | 2017-05-17 12:26 | Operative Report ---
Operative Report Date of Surgery: 05/17/17 Preoperate Diagnosis: right supraclavicular abscess Postoperative Diagnosis: right supralevator abscess Surgeon: Jorge Alberto Kamara MD Head Gauge Unit Operator Surgeon: none Procedure Performed: Aspiration right supraorbital region Anesthesia: Gen. endotracheal. 1% Xylocaine with epinephrine Indications: 56-year-old male with subclavicular abscess noted on CT scan. Ultrasound showing a 4 cm abscess approximately 3 cm below the skin in the right suprapubic region. FINDINGS: Aspiration of supra clavicular region revealed no evidence of abscess. Surgical Technique: The patient brought the operating room, placed in the dorsal supine position. Patient underwent general endotracheal anesthesia by the anesthesiology department. The right side of the patient's neck and supraclavicular region on the right and upper chest were prepped using Betadine and draped in sterile fashion. The site previously identified by ultrasonography and having been marked, was identified. The midportion of the site was infiltrated using local anesthetic. Through this area of infiltration and 16-gauge 1 inch needle was introduced with no results. The needle was then guided in all 4 quadrants and again no purulent material was aspirated. Resident risk injury to the vessels or the lung, who decided to terminate the procedure. The patient tolerated procedure well. Was extubated, transferred to the recovery room. No intervention consultation and will be scheduled for ultrasound guidance aspiration in radiology.
--- NOTE | 2017-05-17 12:33 | NUR ---
PATIENT ARRIVED TO PACU AT 1228. SPONT RESP. VITALS STABLE. DRESSING TO R CLAVICAL CLEAN, DRY AND INTACT. WILL CONTINUE TO MONITOR.
--- NOTE | 2017-05-17 13:05 | NUR ---
COVERING FOR PRIMARY RN ON LUNCH: PT RETURNED FROM PACU AT 1455, STABLE, VSS, PAIN IS CONTROLLED, PT DENIES NEEDS, CHECKING Q15 MINUTE VS. RUNNING INSTRUCTOR AT BEDSIDE.
--- NOTE | 2017-05-17 13:15 | NUR ---
PATIENT BACK FROM PACU AT 1300. R NECK WITH DSD DRSG AND TEGADERM COVERING. CDI. DENIES PAIN AT THIS TIME. RESTING COMFORTABLY IN BED. VSS.
--- NOTE | 2017-05-17 13:42 | Progress Note ---
Subjective General Patient seen and examined. Patient is due to go to the operating room today to have drainage of his abscess. Patient has no complaints overnight and is in relatively good spirits. Constitutional Denies: Fever, Chills, Sweats, Weakness, Malaise, Other. Eyes Denies: Pain, Vision Change, Conjunctival Inflammation, Eyelid Inflammation, Redness, Other. Respiratory Denies: Cough, Dry, SOB w/exertion, Wheezing, Hemoptysis, Pleuritic Pain, Sputum , Other. Cardiovascular Denies: Chest Pain, Palpitations, Orthopnea, PND, Edema, Light-headedness, Other. Gastrointestinal Denies: Nausea, Vomiting, Abdominal Pain, Diarrhea, Constipation, Melena, Hematochezia, Other. Genitourinary Denies: Dysuria, Frequency, Incontinence, Hematuria, Retention, Other. Musculoskeletal Denies: Neck Pain, Shoulder Pain, Arm Pain, Back Pain, Hand Pain, Leg Pain, Foot Pain, Other. Skin Denies: Rash, Lesions, Jaundice, Bruising, Other. Neurological Denies: Weakness, Numbness, Incoordination, Change in speech, Confusion, Seizures, Other. Physical Exam Vital Signs / I&Os Vital Signs Date Time Temp Pulse Resp B/P Pulse O2 O2 Flow FiO2 Ox Delivery Rate 05/17 1315 97.7 73 18 128/83 99 Room Air 05/17 1303 97.7 65 18 123/86 97 Room Air 05/17 1240 80 17 114/82 97 05/17 1235 81 23 117/78 97 05/17 1230 82 21 118/76 97 05/17 1228 97.5 76 18 109/75 97 05/17 1048 98.1 67 18 123/85 97 Room Air 05/17 0826 96 / 0754 98.2 58 18 128/88 97 Room Air 05/17 0303 98.8 86 17 126/79 96 Room Air 05/16 2128 100.0 80 16 114/68 92 Room Air 05/16 1818 99.3 90 16 100/51 94 Room Air 05/16 1506 97.9 76 20 110/67 100 Room Air I&O 05/16 0800 15 1600 16 0000 Intake Total 3872 Output Total 700 Balance -700 3872 General Appearance Alert, Oriented X3, No acute distress HEENT Atraumatic, PERRLA, Moist mucous membranes Lungs Clear to auscultation Neck No JVD, No masses, No thyromegaly Cardiovascular Normal S1 and S2, No murmurs, gallops, rubs Abdomen Soft, No tenderness, No rebound, No masses Extremities No edema, Normal pulses Skin No Breakdown Neurological Normal speech, Normal tone, Cranial nerves intact, No lateralizing signs Psych/Mental Status Mood normal LAB Results Laboratory Tests 05/17 05/17 05/17 0645 0608 0928 Chemistry Plasma Sodium (136 - 145 mmol/L) 138 Plasma Potassium (3.5 - 5.1 mmol/L) 4.6 Plasma Chloride (98 - 107 mmol/L) 105 CO2 (Enzymatic) (21 - 32 mmol/L) 27 BUN (7 - 18 mg/dL) 11 Creatinine (0.6 - 1.3 mg/dL) 0.8 Est GFR ( Amer) (mL/min) >60 Est GFR (Non-Af Amer) (mL/min) >60 Glucose (70 - 110 mg/dL) 102 Hemoglobin A1c % (4.5 - 6.2 %) 5.9 Plasma Calcium (8.5 - 10.1 mg/dL) 7.5 Hematology WBC (4.5 - 11.5 K/uL) 15.5 RBC (4.50 - 5.90 M/uL) 3.93 Hgb (13.5 - 17.5 gm/dL) 11.3 Hct (41.0 - 53.0 %) 33.5 MCV (80 - 100 fL) 85 MCH (26 - 34 pg) 29 RDW (11.6 - 14.8 %) 13.7 Neut % (Auto) (50 - 75 %) 75.8 Lymph % (Auto) (25 - 40 %) 12.1 [place] % (Auto) (3 - 14 %) 9.0 Eos % (Auto) (0 - 4 %) 2.7 Baso % (Auto) (0 - 2 %) 0.4 Plt Count, EDTA (150 - 400 K/uL) 509 PUBS MCHC (31 - 37 g/dL) 34 Toxicology Vancomycin Trough (10.0 - 20.0 ug/mL) 10.7 Microbiology Date/Time Procedure - Status Source Growth 05/17 UNK MRSA Screen - RECD NASAL Assessment and Plan Problem List 1. Pleural mass Status Acute Onset Date Unknown Plan Patient seen to have a 2 cm x 3 cm pleural mass located on the right lateral aspect of the first and second rib Upon ultrasound guidance the mass appears to be an abscess due to its nature We'll continue with the vancomycin and Zosyn antibiotics for the time being Patient will go to the operating room today to have the abscess drained We'll have the fluid sent for evaluation and analysis We'll tailor antibiotics to microbial contents of abscess 2. Pulmonary embolism Status Acute Onset Date Unknown Plan Patient initially presented with shortness of breath Patient on initial CT scan was seen to have a nonocclusive left PE Upon VQ scan it was found the patient did not have any evidence of pulmonary embolism We'll not treat the patient with blood thinners for the time being 3. Methamphetamine abuse Status Chronic Onset Date Unknown Plan Patient has a history of injection methamphetamine use Patient urged to not continue with methamphetamine abuse given it will cause cardiac and infectious disease problems for the patient self Will offer outpatient treatment possibilities for the patient 4. Anemia Status Acute Onset Date Unknown Plan Patient has evidence of iron deficiency anemia Patient's anemia workup revealed low iron levels and low TIBC We'll supplement with iron daily
--- NOTE | 2017-05-17 21:55 | NUR ---
PT A&OX3, COOPERATIVE WITH CARE. REPORTS NO PAIN TO RIGHT SIDE OF NECK. IV PATENT. DRESSING TO RIGHT SIDE OF NECK IS C/D/I. PT HAD 2 VISITORS IN [facility]. PARTNERSHIP AGREEMENT DISCUSSED AND SIGNED BY PT. VISITORS ASKED TO LEAVE IT WAS AFTER VISITING HOURS. PT RESTING IN BED WITH CALL LIGHT IN REACH.
--- NOTE | 2017-05-18 00:31 | NUR ---
Pt. is resting in bed at this time. Dressing to R side of neck CDI. Denies pain. MRSA precautions in place. Call light within reach.
[2017-05-18 03:04] VITALS: BP 130/78
[2017-05-18 07:26] VITALS: BP 129/82
--- NOTE | 2017-05-18 09:07 | NUR ---
patient is alert and oriented. denies pain. reports he is feeling better. pt is calm and cooperative. he states he feels ready to DC to home and would liek to know when he can go. discussed plan of care for today- US guided biopsy. will discuss plan for DC in rounds with
[2017-05-18 10:26] VITALS: BP 139/91
[2017-05-18 14:40] VITALS: BP 140/99
--- NOTE | 2017-05-18 15:31 | Progress Note ---
Subjective General Patient seen and examined this morning. Patient has no complaints overnight. Patient had an attempted aspiration of his chest wall mass yesterday and operating room. However it was unable to be aspirated. Patient will go for interventional radiology ultrasound-guided aspiration today. Constitutional Denies: Fever, Chills, Sweats, Weakness, Malaise, Other. Eyes Denies: Pain, Vision Change, Conjunctival Inflammation, Eyelid Inflammation, Redness, Other. Respiratory Denies: Cough, Dry, SOB w/exertion, Wheezing, Hemoptysis, Pleuritic Pain, Sputum , Other. Cardiovascular Denies: Chest Pain, Palpitations, Orthopnea, PND, Edema, Light-headedness, Other. Gastrointestinal Denies: Nausea, Vomiting, Abdominal Pain, Diarrhea, Constipation, Melena, Hematochezia, Other. Genitourinary Denies: Dysuria, Frequency, Incontinence, Hematuria, Retention, Other. Musculoskeletal Denies: Neck Pain, Shoulder Pain, Arm Pain, Back Pain, Hand Pain, Leg Pain, Foot Pain, Other. Skin Denies: Rash, Lesions, Jaundice, Bruising, Other. Neurological Denies: Weakness, Numbness, Incoordination, Change in speech, Confusion, Seizures, Other. Physical Exam Vital Signs / I&Os Vital Signs Date Time Temp Pulse Resp B/P Pulse O2 O2 Flow FiO2 Ox Delivery Rate 05/18 1440 97.5 73 18 140/99 99 Room Air 05/18 1026 97.9 80 18 139/91 99 Room Air 05/18 0726 97.9 55 18 129/82 99 Room Air 05/18 0304 98.4 65 18 130/78 99 Room Air 05/17 2227 98.8 72 18 116/72 100 Room Air 05/17 1750 97.7 70 18 112/50 97 Room Air 05/17 1601 Room Air I&O 05/17 0800 05/17 1600 05/18 0000 Intake Total 791 1550 2297 Output Total 700 1150 400 Balance 91 400 1897 General Appearance Alert, Oriented X3, No acute distress HEENT Atraumatic, PERRLA, Moist mucous membranes Lungs Clear to auscultation Neck Supple, No JVD, No masses Cardiovascular Regular rate and rhythm, Normal S1 and S2, No murmurs, gallops, rubs Abdomen Soft, No tenderness, No guarding, No masses Extremities No edema, Normal pulses, No tenderness Skin No Breakdown, No Significant Lesions Neurological Normal gait, Normal speech, Normal tone, Cranial nerves intact, No lateralizing signs Psych/Mental Status Mood normal LAB Results Laboratory Tests 05/18 05/18 0550 0550 Chemistry Plasma Sodium (136 - 145 mmol/L) 139 Plasma Potassium (3.5 - 5.1 mmol/L) 4.3 Plasma Chloride (98 - 107 mmol/L) 106 CO2 (Enzymatic) (21 - 32 mmol/L) 30 BUN (7 - 18 mg/dL) 11 Creatinine (0.6 - 1.3 mg/dL) 0.9 Est GFR ( Amer) (mL/min) >60 Est GFR (Non-Af Amer) (mL/min) >60 Glucose (70 - 110 mg/dL) 111 Plasma Calcium (8.5 - 10.1 mg/dL) 7.7 Total Bilirubin (0.0 - 1.0 mg/dL) 0.2 AST (15 - 37 U/L) 32 ALT (12 - 78 U/L) 39 Alkaline Phosphatase (46 - 116 U/L) 57 Total Protein (6.4 - 8.2 g/dL) 6.5 Albumin (3.3 - 5.0 g/dL) 1.7 Procalcitonin (0 - 0.5 ng/mL) <0.5 Hematology WBC (4.5 - 11.5 K/uL) 9.8 RBC (4.50 - 5.90 M/uL) 3.65 Hgb (13.5 - 17.5 gm/dL) 10.5 Hct (41.0 - 53.0 %) 31.6 MCV (80 - 100 fL) 87 MCH (26 - 34 pg) 29 RDW (11.6 - 14.8 %) 13.8 Neut % (Auto) (50 - 75 %) 66.7 Lymph % (Auto) (25 - 40 %) 19.4 [place] % (Auto) (3 - 14 %) 9.8 Eos % (Auto) (0 - 4 %) 3.4 Baso % (Auto) (0 - 2 %) 0.7 Plt Count, EDTA (150 - 400 K/uL) 664 PUBS MCHC (31 - 37 g/dL) 33 Assessment and Plan Problem List 1. Pleural mass Status Acute Onset Date Unknown Plan Evidence of pleural mass between the first and second rib infraclavicular area Attempted aspiration was done yesterday however no substances was able to be aspirated. Patient will go for interventional radiology ultrasound-guided aspiration today We'll continue the Misael and James for the time being We'll continue to monitor patient's CBC and CMP daily 2. Pulmonary embolism Status Acute Onset Date Unknown Plan No evidence of pulmonary embolism on VQ scan No treatment warranted at the present time 3. Methamphetamine abuse Status Chronic Onset Date Unknown Plan Patient urged to stop methamphetamine injection use Patient claims that he will 4. Anemia Status Acute Onset Date Unknown Plan Patient has evidence of iron deficiency anemia Patient currently has iron supplementation provided for him
[2017-05-18 19:11] VITALS: BP 134/92
--- NOTE | 2017-05-18 19:44 | DIAGNOSTIC IMAGING REPORT ---
PROCEDURE: US GUIDANCE BX/INJ/ASP/LOC INDICATION: Right supraclavicular fluid collection. Possible abscess. COMPARISON: Comparison is made to ultrasound of the neck, (05/16/1970) and CTA thorax (and 14:17). TECHNIQUE: Right neck ultrasound: Preliminary images demonstrate a persistent 3.3 x 2.3 x 1.2 cm right supraclavicular fluid collection with areas of internal septation. Abscess is a consideration. Aspiration of right neck fluid collection: Informed consent was obtained and the patient was advised of the usual risks and complications including infection , bleeding and allergy. Upright position. Following sterile preparation and 1% lidocaine local anesthetic, ultrasound guidance was utilized to place a 16-gauge coaxial needle in the right supraclavicular neck and directed into a 3.3 cm fluid collection. Aspiration yielded 4 ml of hemorrhagic/serous fluid with resolution of fluid collection. Fluid specimens were sent to the laboratory for analysis (Gram stain culture). The patient tolerated the procedure well and was transferred back to the floor in satisfactory condition. IMPRESSION: 1. Successful ultrasound-guided aspiration of right supraclavicular fluid collection (4 ml serous fluid). 2. Laboratory studies are pending.
--- NOTE | 2017-05-18 21:43 | NUR ---
PT A&OX3. RIGHT SIDE NECK ULTRASOUND AND ASPIRATED WITH CULTURE PENDING. IV PATENT. REPORTS NO PAIN OR NAUSEA. VSS. AMBLUTING AROUND UNIT INDEPENDANTLY. DRESSING TO RIGHT NECK C/D/I. RESTING IN BED WITH CALL LIGHT IN REACH.
[2017-05-18 22:34] VITALS: BP 120/82
--- NOTE | 2017-05-19 | NUR ---
Pt. is resting in bed at this time, awake and watching television. Cooperative and pleasant with care, states he wants to go home in the am. C/o small amount of pain to R side of neck, requested pain medication. Vicodin administered. Bandage on R side of neck CDI. IV fluids infusing without issues. WCTM.
[2017-05-19 02:42] VITALS: BP 130/86
[2017-05-19 07:12] VITALS: BP 124/81
[2017-05-19] MEDS ORDERED: AUGMENTIN875 MG PO (09:32)
--- NOTE | 2017-05-19 09:33 | Provider's Discharge Care Plan ---
Problem, Goal, Plan Problem List 1. Pleural mass Instructions: Stop smoking, - finish course of antibioitics 2. Methamphetamine abuse Instructions: - stop abusing methapmhetamine 3. Nicotine dependence Instructions: Stop smoking
--- NOTE | 2017-05-19 10:09 | NUR ---
DISCHARGE EDUCATION COMPLETED. PT STATES UNDERSTANDING AND DENIES FURTHER QUESTIONS HE IS ABLE TO TEACH BACK TIME FOR ANTIBIOTIC DOSES AND ALSO S/S OF WHEN TO SEEK IMMEDIATE ATTENTION. IV SITE REMOVED. PT TO DC TO HOME WITH HISMOTHER
--- NOTE | 2017-05-19 12:48 | Discharge Summary ---
Discharge Summary Report Admit Date 05/16/17 Discharge Date 05/19/17 Admission Diagnosis shortness of breath Discharge Diagnosis lung mass Brief History please refer to admission H&P Hospital Course Patient was admitted for shortness of breath. Patient was brought to the acute care floor. Patient initially had a CT scan which revealed the presence of a left pulmonary embolism. However it was not conclusive, and the actual embolism was not at all obstructing. Given these findings it was prudent to do a VQ scan. The V/Q scan did not reveal any sort of pulmonary embolism. However patient upon admission was seen to have a 2 cm x 3 cm pleural mass located between the first and second rib infraclavicularly. Given the location it was prudent to ask surgery to drain the mass. Patient was taken to the OR on day 2. The surgeon of the time was unable to aspirate any of the contents of that mass. It was then decided that the patient should have the mass drain by interventional radiology. Interventional radiology under ultrasound guidance was able to aspirate the mass. The mass does not have any evidence of infectious characteristics however the fluid was sent for analysis. At this time given patient's ability to breathe without any sort of difficulty, his inability ability to ambulate without difficulty, and the amount of time it would take for the results to come back was decided the patient should be discharged. Patient will be discharged on a 5 day course of antibiotics. Patient will additionally call up to our pathology Department to find out the results of his analysis. Patient will follow-up with his primary care doctor as needed. Patient urged to stay away from tobacco and methamphetamines General Appearance Alert, Oriented X3, No acute distress HEENT PERRLA Lungs Normal air movement Cardiovascular Normal S1, Normal S2, No murmurs, Gallops Abdomen Soft, No tenderness Skin - surg wound site look appropriate Neurological Normal speech, Normal tone, Sensation intact Psych/Mental Status Mood NL Lab/Imaging Laboratory Tests 05/19 05/19 0620 0930 Chemistry Plasma Sodium (136 - 145 mmol/L) 141 Plasma Potassium (3.5 - 5.1 mmol/L) 4.7 Plasma Chloride (98 - 107 mmol/L) 106 CO2 (Enzymatic) (21 - 32 mmol/L) 31 BUN (7 - 18 mg/dL) 12 Creatinine (0.6 - 1.3 mg/dL) 1.0 Est GFR ( Amer) (mL/min) >60 Est GFR (Non-Af Amer) (mL/min) >60 Glucose (70 - 110 mg/dL) 97 Plasma Calcium (8.5 - 10.1 mg/dL) 8.3 Total Bilirubin (0.0 - 1.0 mg/dL) 0.2 AST (15 - 37 U/L) 55 ALT (12 - 78 U/L) 64 Alkaline Phosphatase (46 - 116 U/L) 73 Total Protein (6.4 - 8.2 g/dL) 6.6 Albumin (3.3 - 5.0 g/dL) 2.2 Hematology WBC (4.5 - 11.5 K/uL) 12.4 RBC (4.50 - 5.90 M/uL) 3.98 Hgb (13.5 - 17.5 gm/dL) 11.5 Hct (41.0 - 53.0 %) 34.4 MCV (80 - 100 fL) 87 MCH (26 - 34 pg) 29 RDW (11.6 - 14.8 %) 13.7 Neut % (Auto) (50 - 75 %) 75.0 Lymph % (Auto) (25 - 40 %) 15.0 [place] % (Auto) (3 - 14 %) 6.4 Eos % (Auto) (0 - 4 %) 3.4 Baso % (Auto) (0 - 2 %) 0.2 Plt Count, EDTA (150 - 400 K/uL) 760 PUBS MCHC (31 - 37 g/dL) 33 Toxicology Vancomycin Trough (10.0 - 20.0 ug/mL) 18.5 Microbiology Date/Time Procedure - Status Source Growth 05/18 1845 Deep Wound Culture - RES SHOULDER 05/18 1845 Deep Wound Culture - RES SHOULDER 05/18 1845 Gram Stain - RES SHOULDER Discharge Instructions/Meds Complete course of antibiotics Follow-up with PCP in one week or as needed Call up for results of your mass analysis
== END 2017-05-19 10:05 | disposition home or self-care (01) | DRG 383 ==
LOC: ED SRH 19:32 → TRANS SRH 05-16 00:49 → ACUTE2 SRH 05-16 00:49 → TRANS SRH 05-16 03:00 → ACUTE2 SRH 05-16 04:12
PROVIDERS: ADMIT Internal Medicine
PROC: 0JJT3ZZ Inspection of Trunk Subcutaneous Tissue and Fascia, Percutaneous Approach (ICD-10-PCS; 2017-05-17)
PROC: 0J963ZZ Drainage of Chest Subcutaneous Tissue and Fascia, Percutaneous Approach (ICD-10-PCS; principal; 2017-05-18)
DX: L02.213 Cutaneous abscess of chest wall (principal); J94.9 Pleural condition, unspecified; R06.02 Shortness of breath; D50.9 Iron deficiency anemia, unspecified; K74.69 Other cirrhosis of liver; B18.2 Chronic viral hepatitis C; F15.10 Other stimulant abuse, uncomplicated